=== PATIENT | male | born 1950 | race Caucasian/White ===

== ENCOUNTER 2017-01-21 18:15 | Emergency (ER) | payer MEDICARE, OTHER ==
[~2017-01-21] VITALS: Ht 182.9 cm; Wt 127.3 kg
[2017-01-21] MEDS ORDERED: EFFE150C PO (18:35)
[2017-01-21] MEDS ORDERED: LISI-542 PO (18:42)
[2017-01-21] MEDS ORDERED: METO1TAB7 PO (18:42)
[2017-01-21] MEDS ORDERED: AMIO200T37 PO (18:42)
[2017-01-21] MEDS ORDERED: ESOM1CAP5 PO (18:42)
[2017-01-21] MEDS ORDERED: SING10TA32 PO (18:42)
[2017-01-21] MEDS ORDERED: ATOR1TAB21 PO (18:42)
[2017-01-21] MEDS ORDERED: DEPA500T2 PO (18:42)
[2017-01-21] MEDS ORDERED: ELIQ5TAB PO (18:42)
--- NOTE | 2017-01-21 19:29 | REP ---
HISTORY: Pain after trauma. The patient on Eliquis. COMPARISON: 08/12/2012 TECHNIQUE: 4.5 mm contiguous transaxial sections were obtained from the skull base to the cerebral convexities with thin cuts through the posterior fossa without the administration of intravenous contrast. FINDINGS: The ventricles and sulci are consistent with the patient's age. There are no extra-axial fluid collections. There is no mass effect. The deep cerebral white matter is consistent with the patient's age. The orbital and petrous structures , cerebellopontine angles, and posterior fossa are unremarkable. The sella turcica, cavernous, and paracavernous structures are essentially unremarkable. The visualized portions of the paranasal sinuses and mastoid air cells are clear. Images of the skull base show no gross abnormality. IMPRESSION: Essentially unremarkable CT examination of the brain. There has been no significant change compared to the prior examination. Signed by Krish Thomas DO 01/21/2017 07:54 P
--- NOTE | 2017-01-21 19:36 | REP ---
HISTORY: Pain in the neck after trauma. COMPARISON: 08/12/2012 There is no evidence of significant change from the prior exam. There is no evidence of an acute cervical spine fracture. The facet joints are again seen to be well aligned bilaterally. Degenerative disc space narrowing is again seen at every level and particularly at the C6-7 level where anterior and posterior osteophytic ridging is again seen to be the heaviest. IMPRESSION: Chronic changes as described above. There is no evidence of an acute cervical spine fracture. Signed by Krish Thomas DO 01/21/2017 07:54 P
--- NOTE | 2017-01-21 19:43 | REP ---
HISTORY: Pain after trauma. COMPARISON: None. There is a slight grade 1 superior endplate compression deformity seen involving T11. Syndesmophyte and partial syndesmophyte formation is seen bilaterally at multiple levels. The pedicles are intact bilaterally. There is degenerative disc space narrowing. IMPRESSION: Grade 1 T11 compression fracture, the age of which cannot be determined by this exam. Signed by Krish Thomas DO 01/21/2017 07:54 P
--- NOTE | 2017-01-21 19:43 | REP ---
REASON: Pain after trauma. COMPARISON: None. There is a grade 2 T12 anterior wedge shaped compression abnormality. There are chronic changes seen throughout the lumbar spine with posterior disc space narrowing and anterior lipping, heaviest at the T12-L1 level. Vertebral body height is otherwise within normal limits. Syndesmophyte and partial syndesmophyte formation is seen at various levels bilaterally. There is degenerative facet joint change seen bilaterally at L4-5 and L5-S1. IMPRESSION: Exact age undetermined, grade 2 T12 compression deformity due to the degree of anterior lipping. The finding probably represents chronic change but needs to be correlated clinically. Chronic changes as described above. Signed by Krish Thomas DO 01/21/2017 07:54 P
[2017-01-21] MEDS ORDERED: PERCOCET 5MG/325MG TAB PO ONE (19:45)
[2017-01-21] MEDS ORDERED: LORazepam 2 MG/ML VIAL (J2060) IV STA (20:20)
[2017-01-21] MEDS ORDERED: MORPHINE 2 MG/ML 1ML SYRINGE IV ONE (20:30)
[2017-01-21] MEDS ORDERED: NORCO 5/325MG TABLET (BULK FOR ED) PO ONE (21:45)
[2017-01-21 22:42] VITALS: BP 108/62
== END 2017-01-21 22:49 | disposition home or self-care (01) ==
LOC: M ED 18:15 → EDBD 18:15 → M ED 22:49
DX: S22.080A Wedge compression fracture of T11-T12 vertebra, initial encounter for closed fracture (principal); W01.0XXA Fall on same level from slipping, tripping and stumbling without subsequent striking against object, initial encounter; Y92.510 Bank as the place of occurrence of the external cause; Y93.9 Activity, unspecified; Y99.9 Unspecified external cause status; I48.91 Unspecified atrial fibrillation; Z79.01 Long term (current) use of anticoagulants; Z79.899 Other long term (current) drug therapy
CPT/HCPCS: 70450; 72072; 72110; 72125; 96374; 96375; 99284; J2060

== ENCOUNTER 2017-01-23 07:51 | Emergency (ER) | payer OTHER ==
[~2017-01-23] VITALS: Ht 182.9 cm; Wt 127.3 kg
[~2017-01-23 07:51] MED LIST: AMIO200T37 PO; ATOR1TAB21 PO; DEPA500T2 PO; EFFE150C PO; ELIQ5TAB PO; ESOM1CAP5 PO; LISI-542 PO; METO1TAB7 PO; SING10TA32 PO
[2017-01-23] MEDS ORDERED: ONDANSETRON 4MG/2ML VIAL (J2405) IV ONE (08:45)
[2017-01-23] MEDS ORDERED: MORPHINE 4 MG/ML 1ML SYRINGE IV ONE (08:45)
--- NOTE | 2017-01-23 10:59 | REP ---
CT study of the thoracic and lumbar spine junction without contrast: History: T12 fracture sustained in a recent fall with increased pain. Comparison thoracic and lumbar spine radiographs are from January 21, 2017. Technique: Helical scanning is acquired from mid T9 through L2. Coronal and sagittal multiplanar re-formation images are generated in addition to axial images. CT findings: This CT study confirms the presence of recent compression fracture deformity at T12 with discontinuity of the anterior cortex inferiorly. There is mild, 20% loss of anterior vertebral body heights. No retropulsion is appreciated. No posterior element involvement is seen. The other vertebral body heights in the field of view remain preserved. No paraspinal or epidural hematoma is appreciated. Impression: Mild wedge compression fracture deformity at T12 appears recent. 20% loss vertebral body height. No retropulsion or posterior element involvement seen. No evidence of epidural or paraspinal hematoma. Signed by Yogi Gonzalez MD 01/23/2017 02:17 P
[2017-01-23 11:17] VITALS: O2SAT 92
[2017-01-23] MEDS ORDERED: PERCOCET 5MG/325MG TAB PO ONE (12:30)
[2017-01-23] MEDS ORDERED: CYCL5TAB PO (13:55)
[2017-01-23 13:59] VITALS: BP 124/65
--- NOTE | 2017-01-23 14:08 | REP ---
MRI lumbar spine without contrast: History: Left L2-3 radiculopathy. History of a fall. Low back pain. Recent imaging showed a mild T12 wedge compression fracture. Comparison is made with today's thoracic spine CT and thoracic spine radiographs from January 21, 2017. Technique: Sagittal and axial T1 and T2-weighted scans are acquired in the usual fashion with and without fat saturation. Sequences include spin echo, turbo spin-echo, and STIR imaging sequences. MRI findings: There is T2 hyperintense, T1 hypointense edema pattern in the T12 vertebral body particularly along the superior endplate and in the anterior portion of the vertebral body consistent with a recent osteoporotic wedge compression fracture deformity. There is buckling of the anterior cortex as seen on CT imaging. There is no evidence of retropulsion. There is no evidence of epidural hematoma. No ligament disruption is appreciated on STIR images. The conus medullaris is normal in appearance and position at T12. No other fracture or collapse is seen. There is mild disc space narrowing at the L3-4 disc level. Canal size is congenitally small at L2-3 through L5-S1. There is some epidural fat diffusely at L4-5 and at L5-S1. There is facet hypertrophy at L5-S1 bilaterally and to a lesser extent at L4-5. No neural foraminal narrowing is appreciated. Impression: Recent mild wedge compression fracture deformity at T12 as seen on thoracic CT. No evidence of epidural hematoma or paraspinal hematoma. 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 Mild diffuse disc bulging L3-4, L4-5 and L2-3. No neural foraminal narrowing. No other fracture seen. Signed by Yogi Gonzalez MD 01/23/2017 02:21 P
== END 2017-01-23 14:10 | disposition home or self-care (01) ==
LOC: M ED 07:51 → EDBD 07:51 → M ED 14:10
DX: S22.080A Wedge compression fracture of T11-T12 vertebra, initial encounter for closed fracture (principal); M54.17 Radiculopathy, lumbosacral region; W19.XXXA Unspecified fall, initial encounter; Y92.9 Unspecified place or not applicable; Y93.9 Activity, unspecified; Y99.9 Unspecified external cause status; I48.91 Unspecified atrial fibrillation; I10 Essential (primary) hypertension; F31.9 Bipolar disorder, unspecified; M51.26 Other intervertebral disc displacement, lumbar region; Z79.899 Other long term (current) drug therapy
CPT/HCPCS: 72128; 72148; 93041; 94760; 96374; 96375; 99285; J2405; J3360

== ENCOUNTER 2017-01-30 07:17 | Emergency (ER) | payer OTHER ==
[~2017-01-30] VITALS: Ht 182.9 cm; Wt 127.2 kg
[~2017-01-30 07:17] MED LIST changes: +CYCL5TAB PO
[2017-01-30] MEDS ORDERED: OXYC1TAB23 PO (07:35)
[2017-01-30] MEDS ORDERED: TIZANIDINE PO (07:35)
[2017-01-30] MEDS ORDERED: MORPHINE 30 MG TAB **MSIR PO PRN (08:45)
--- NOTE | 2017-01-30 09:30 | REP ---
PA and lateral chest: There are no comparisons. There is an incomplete inspiratory effort. Lung flores are clear. Cardiac size is upper normal. The rajendra, mediastinum, and bony thorax are unremarkable. Impression: Incomplete inspiratory effort. Otherwise, negative chest. Signed by Yaya Prakash MD 01/30/2017 09:21 A
[2017-01-30 09:57] VITALS: BP 126/80
--- NOTE | 2017-01-31 08:00 | ECGEPIP ---
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
== END 2017-01-30 10:12 | disposition home or self-care (01) ==
LOC: EDBD 07:17 → M ED 07:17
DX: R94.31 Abnormal electrocardiogram [ECG] [EKG] (principal); G89.29 Other chronic pain; M54.9 Dorsalgia, unspecified; R60.9 Edema, unspecified; R00.1 Bradycardia, unspecified; I48.91 Unspecified atrial fibrillation; K21.9 Gastro-esophageal reflux disease without esophagitis; F32.9 Major depressive disorder, single episode, unspecified; E78.5 Hyperlipidemia, unspecified; Z87.891 Personal history of nicotine dependence; Z79.899 Other long term (current) drug therapy

== ENCOUNTER → 2019-07-03 | Outpatient (REF) | payer MEDICARE ==
[~2019-07-03] MED LIST changes: -EFFE150C PO; +EFFE150C2 PO; +OXYC1TAB23 PO; +TIZANIDINE PO
== END ==
LOC: M LAB REF 15:25
PROVIDERS: ATTEND Internal Medicine Endocrinology, Diabetes & Metabolism
DX: E04.1 Nontoxic single thyroid nodule (principal)

== ENCOUNTER → 2020-12-30 | Outpatient (CLI) | payer MEDICARE ==
[~2020-12-30] MED LIST changes: +ECOT81TA5 PO; -LISI-542 PO; +LISI-898 PO
== END ==
LOC: M LABSMTC 10:58
PROVIDERS: ATTEND Anesthesiology
DX: Z01.812 Encounter for preprocedural laboratory examination (principal); Z20.822 Contact with and (suspected) exposure to COVID-19

== ENCOUNTER 2021-01-03 11:35 | Day surgery (SDC) | payer MEDICARE ==
[~2021-01-03] VITALS: Ht 182.9 cm; Wt 93.0 kg
[~2021-01-03 11:35] MED LIST changes: +NS 1,000 ML IV ONE
[2021-01-03] MEDS ORDERED: propofoL 200 MG/20 ML VIAL As Ordered ONE (12:29)
[2021-01-03] MEDS ORDERED: fentaNYL 100 MCG/2 ML INJECTION (J3010) As Ordered ONE (12:29)
[2021-01-03] MEDS ORDERED: LIDOCAINE 2% 100MG/5ML SDV (FOR ANES.) As Ordered ONE (12:29)
--- NOTE | 2021-01-03 12:51 | ROOR ---
Patient Name: Antony Rose Procedure Date: 01/03/2021 12:31 PM Date of : 1950 Age: 70 Room: [facility] Gender: Male Note Status: Finalized Procedure: Upper GI endoscopy Indications: Nausea with vomiting Providers: Jamin Pires MD Referring MD: Girish Rothman DO Requesting Provider: Medicines: Monitored Anesthesia Care Complications: No immediate complications. Procedure: Pre-Anesthesia Assessment: - The heart rate, respiratory rate, oxygen saturations, blood pressure, adequacy of pulmonary ventilation, and response to care were monitored throughout the procedure. The Endoscope was introduced through the mouth, and advanced to the second part of duodenum. The upper GI endoscopy was accomplished without difficulty. The patient tolerated the procedure well. Findings: The Z-line was variable and was found 40 cm from the incisors. This was biopsied with a cold forceps for histology. Scattered mild inflammation characterized by erythema and granularity was found in the gastric antrum. Biopsies were taken with a cold forceps for histology. Small Hiatal Hernia. A small diverticulum was found in the second portion of the duodenum. The exam was otherwise without abnormality. Impression: - Z-line variable, 40 cm from the incisors. Biopsied. - Mild antral gastritis. Biopsied. - Small Hiatal Hernia. - Duodenal diverticulum. - The examination was otherwise normal. Recommendation: - Observe patient's clinical course. - Continue present medications. Procedure Code(s): --- Professional --- 27807, Esophagogastroduodenoscopy, flexible, transoral; with biopsy, single or multiple Diagnosis Code(s): --- Professional --- K57.10, Diverticulosis of small intestine without perforation or abscess without bleeding R11.2, Nausea with vomiting, unspecified K29.70, Gastritis, unspecified, without bleeding K22.8, Other specified diseases of esophagus CPT copyright 2019 [employer] [place] [employer]. All rights reserved. The codes documented in this report are preliminary and upon dive master review may be revised to meet current compliance requirements. Jamin Pires MD Jamin Pires MD 01/03/2021 12:50:57 PM Electronically signed by Jamin Pires MD Number of Addenda: 0 Note Initiated On: 01/03/2021 12:31 PM Estimated Blood Loss: Estimated blood loss: none.
--- NOTE | 2021-01-03 13:10 | ROOR ---
Patient Name: Antony Rose Procedure Date: 01/03/2021 12:32 PM Date of : 1950 Age: 70 Room: [facility] Gender: Male Note Status: Finalized Procedure: Colonoscopy Indications: Screening for colorectal malignant neoplasm Providers: Jamin Pires MD Referring MD: Girish Rothman DO Requesting Provider: Medicines: Monitored Anesthesia Care Complications: No immediate complications. Procedure: Pre-Anesthesia Assessment: - The heart rate, respiratory rate, oxygen saturations, blood pressure, adequacy of pulmonary ventilation, and response to care were monitored throughout the procedure. The Colonoscope was introduced through the anus and advanced to the terminal ileum, with identification of the appendiceal orifice and IC valve. The colonoscopy was performed without difficulty. The patient tolerated the procedure well. The quality of the bowel preparation was good. Findings: The perianal and digital rectal examinations were normal. Five sessile polyps were found in the sigmoid colon and hepatic flexure. The polyps were 4 to 6 mm in size. These polyps were removed with a cold snare. Resection and retrieval were complete. A few small-mouthed diverticula were found in the sigmoid colon. Internal hemorrhoids were found during retroflexion. The hemorrhoids were medium-sized. The exam was otherwise without abnormality on direct and retroflexion views. Impression: - Five 4 to 6 mm polyps in the sigmoid colon and at the hepatic flexure, removed with a cold snare. Resected and retrieved. - Diverticulosis in the sigmoid colon. - Internal hemorrhoids. - The examination was otherwise normal on direct and retroflexion views. Recommendation: - Repeat colonoscopy in 3 years for surveillance. Procedure Code(s): --- Professional --- 50423, Colonoscopy, flexible; with removal of tumor(s), polyp(s), or other lesion(s) by snare technique Diagnosis Code(s): --- Professional --- Z12.11, Encounter for screening for malignant neoplasm of colon K63.5, Polyp of colon K64.8, Other hemorrhoids K57.30, Diverticulosis of large intestine without perforation or abscess without bleeding CPT copyright 2019 [employer]. All rights reserved. The codes documented in this report are preliminary and upon jet blade polisher review may be revised to meet current compliance requirements. Jamin Pires MD Jamin Pires MD 01/03/2021 1:10:35 PM Electronically signed by Jamin Pires MD Number of Addenda: 0 Note Initiated On: 01/03/2021 12:32 PM Estimated Blood Loss: Estimated blood loss: none.
[2021-01-03 13:35] VITALS: BP 138/96
== END 2021-01-03 13:39 | disposition home or self-care (01) ==
LOC: M OPP 11:35
PROVIDERS: ATTEND Internal Medicine Gastroenterology
DX: Z12.11 Encounter for screening for malignant neoplasm of colon (principal); D12.3 Benign neoplasm of transverse colon; D12.5 Benign neoplasm of sigmoid colon; K57.30 Diverticulosis of large intestine without perforation or abscess without bleeding; K64.8 Other hemorrhoids; K22.8 Other specified diseases of esophagus; K44.9 Diaphragmatic hernia without obstruction or gangrene; K57.10 Diverticulosis of small intestine without perforation or abscess without bleeding; K29.70 Gastritis, unspecified, without bleeding; R11.2 Nausea with vomiting, unspecified; I42.9 Cardiomyopathy, unspecified; Z79.82 Long term (current) use of aspirin; Z79.899 Other long term (current) drug therapy
CPT/HCPCS: 43239; 45385; 88305; J3010

== ENCOUNTER 2021-01-27 16:11 | Observation (INO) | payer MEDICARE ==
[~2021-01-27] VITALS: Ht 182.9 cm; Wt 91.4 kg
[~2021-01-27 16:11] MED LIST changes: -NS 1,000 ML IV ONE
--- OUTSIDE RECORDS SUMMARY | 2021-01-27 16:15 | CCD | Continuity of Care Document ---
Author Author Antony PIRES MD Organization Unknown Address [address] [place] [address] Phone [phone] Care Team Providers Care Gericare Aide Name Role Phone Girish Rothman D.O. AUTM [phone] Blayen Silva M.D.-[place] AUTM Problems Description No Active Problems Social History Type Date Description Comments Sex Unknown ETOH Use Heavy Drinker Until 1995 ETOH Use Consumes 3 beers per day Tobacco Use Start: Unknown No Allergies, Adverse Reactions, Alerts Description No Known Drug Allergies Medications Active Medications SIG Qnty Indications Ordering Provide r Date Miralax 17GM/Scoop Powder use as instructed by doctor for bowel prep 510gm Z12.11 Jamin Pires MD 10/01/2020 Milk Of Magnesia 1200mg/15ML Suspe nsion take 45 milliliters by mouth as directed on colonoscopy prep sheet. Z12.11 Jamin Pires MD 10/01/2020 Effexor XR 150mg Caps ER 24HR Daily Unknown Ventolin HFA 108(90Base) mcg/ac Ae rosol 2 puffs qid prn with spacer 1units Unknown Aspir-[address] Mary lau Unknown Montelukast Sodium 10mg Tablets 1 by mouth every day Unknown Atorvastatin Calcium 10mg Tablets 1 by mouth every day Unknown Amiodarone HCL 200mg Tablets 1 by mouth every day Unknown Immunizations Description No Information Available Vital Signs Date Vital Result Comment 10/01/2020 1:27pm BP Systolic 152 mmHg BP Diastolic 86 mmHg Height 72 inches 6'0" Weight 212.00 lb BMI (Body Mass Index) 28.7 kg/m2 [place] Body Weight 178 lb Weight 96.163 kg BSA (Body Surface Area) 2.18 m2 06/19/2009 1:02pm BP Systolic 152 mmHg BP Diastolic 89 mmHg Heart Rate 84 /min Results Test Acquired Date Facility Test Result H/L Range Note Laboratory test finding 01/03/2021 [facility] Main Lab [address] [place] [address] [phone] Pathology Request For Service (SEE NOTE) 1 1 FINAL DIAGNOSIS A - Stomach, biopsy for gastritis: Focal mucosal erosion with associated acute inflammation and reactive/inflammatory glandular atypia is noted. Features suggestive of reactive gastropathy are also noted. No features of H. Pylori are noted. B - EG junction, biopsy: Squamocolumnar junction mucosa with moderate chronic inflammation. No intestinal metaplasia is identified. C - Hepatic flexure polyps, polypectomy: Adenomatous polyp/tubular adenoma fragments. D - Sigmoid colon, polyps, polypectomy: Fragments of adenomatous polyp/ tubulovillous and tubular adenoma. 01/06/2021 - 1308 CLINICAL DIAGNOSIS Nausea, vomiting, screening gastritis 01/03/2021 - 1453 GROSS DIAGNOSIS A - Received in formalin labeled "biopsy for gastritis" is a 0.8 x 0.2 x 0.2 cm aggregate of multiple mucosal fra gments. All in one. B - Received in formalin labeled "EG junction biopsy" is a 0.8 x 0.2 x 0.2 cm aggregate of mucosal fragments. All in one. C - Received in formalin labeled "hepatic flexure polyps" is a 0.6 x 0.4 x 0.2 cm aggregate of mucosal fragments. All in one. D - Received in formalin labeled "sigmoid polyps" is a 0.7 x 0.3 x 0.2 cm aggregate of polyp fragments. All in one. - 01/03/2021 - 1453 Signed Franky Cruz MD 01/06/2021 1308 Procedures Date Code Description Status 10/01/2020 34309 Office/Outpatient [facility] 30 -44 Minutes Completed Medical Devices Description No Information Available Encounters Type Date Location Provider Dx Diagnosis Office Visit 10/01/2020 1:15p [facility] Leni Maguire, LATRICIA Z12.11 Encounter for screening for malignant neoplasm of colon R11.2 Nausea with vomiting, unspec ified Assessments Date Code Description Provider 10/01/2020 Z12.11 Encounter for screening for lio gnant neoplasm of colon Kristan A LATRICIA Maguire 10/01/2020 R11.2 Nausea with vomiting, unspecifie d Kristan Rose LATRICIA Maguire Plan of Treatment 10/01/2020 - Kristan A LATRICIA Maguire* Z12.11 Encounter for screening for malignant neoplasm of colon * R11.2 Nausea with vomiting, unspecified * * New Medication:* Miralax 17 GM/Scoop * Milk Of Magnesia 1200 mg/15ML * New Orders:* Colonoscopy, Ordered: 10/01/20 * Comments:* Will arrange for upper endoscopy and colonoscopy. Reviewed risks and benefits of the procedures, as well as other options, with the patient. Prep for this procedure was discussed with patient, including risks and side effects associated with the prep. Will obtain cardiac clearance prior to the procedures. Patient verbalized understanding of all of the above and is in agreement to proceed. Patient will seek medical attention for any acute changes. Will monitor. * Follow up:* As scheduled, sooner if needed. Functional Status Description No Information Available Mental Status Description No Information Available Referrals Refer to Reason for Referral Status Appt Date Jamin Pires M.D. COLO SCREENING Scheduled 10/01/2020 [facility], Gastroenterology [address], [address] [place] [address] [phone]
--- OUTSIDE RECORDS SUMMARY | 2021-01-27 16:15 | CCD | Continuity of Care Document ---
Author Author Antony PIRES MD Organization Unknown Address [address] [place] [address] Phone [phone] Care Team Providers Care Test Bore Helper Name Role Phone Girish Rothman D.O. AUTM [phone] Blayne Silva M.D.-[place] AUTM Problems Description No Active Problems Social History Type Date Description Comments Sex Unknown ETOH Use Heavy Drinker Until 1995 ETOH Use Consumes 3 beers per day Tobacco Use Start: Unknown No Allergies and adverse reactions Description No Known Drug Allergies Medications Active [...] lb BMI (Body Mass Index) 28.7 kg/m2 [place] Body Weight 178 lb Weight 96.163 kg BSA (Body Surface Area) 2.18 m2 06/19/2009 1:02pm BP Systolic 152 mmHg BP Diastolic 89 mmHg Heart Rate 84 /min Results Test Acquired Date Facility Test Result H/L Range Note Laboratory test finding 01/03/2021 [facility] Main Lab [address] [place] [address] [phone] Pathology Request For Service (SEE NOTE) 1 [...] 01/06/2021 1308 Procedures Date Code Description Status 01/03/2021 82902 Colonoscopy W/ Poly Completed 01/03/2021 22745 Endoscopy Upper GI Biopsy Comple daryl 10/01/2020 05702 Office/Outpatient New [facility] 30 -44 Minutes Completed Medical Devices Description No Information Available Encounters Type Date Location Provider Dx Diagnosis Office Visit 10/01/2020 1:15p [facility] Gastroenter[facility] ctice Kristan Rose LATRICIA Maguire Z12.11 Encounter for screening for malignant neoplasm of colon R11.2 Nausea with vomiting, unspec ified Assessments Date Code Description Provider 01/03/2021 Z12.11 Encounter for screening for lio gnant neoplasm of colon Jamin Pires MD 01/03/2021 D12.3 Benign neoplasm of transverse co radha Jamin Pires MD 01/03/2021 D12.5 Benign neoplasm of sigmoid colon Jamin Pires MD 01/03/2021 K64.8 Other hemorrhoids Jamin Pires MD 01/03/2021 K57.30 Diverticulosis of la rge intestine without perforation or abscess without bleeding Jamin Pires MD 01/03/2021 K29.70 Gastritis, unspecified, without bleeding Jamin Pires MD 01/03/2021 K22.8 Other specified diseases of esop hagus Jamin Pires MD 01/03/2021 K57.10 Diverticulosis of sm all intestine without perforation or abscess without bleeding Jamin Pires MD 01/03/2021 K44.9 Diaphragmatic hernia without obs truction or gangrene Jamin Pires MD 10/01/2020 Z12.11 Encounter for screening for lio gnant neoplasm of colon Kristan A LATRICIA Maguire 10/01/2020 R11.2 Nausea with vomiting, unspecifie d LATRICIA Pedersen Plan of Treatment 10/01/2020 - LATRICIA Pedersen* Z12.11 Encounter for screening for malignant neoplasm [...] Description No Information Available Referrals Refer to Dr Reason for Referral Status Appt Date Jamin Pires M.D. COLO SCREENING Scheduled 10/01/2020 [facility], Gastroenterology [address] [place] [address], [place] [phone]
--- OUTSIDE RECORDS SUMMARY | 2021-01-27 16:15 | CCD ---
Clinical Summary - Formerly [facility] Created on: 01/07/2021 Antony Rose External Reference #: [id number] : 1950 Sex: Male Author Author [facility] Organization [facility] Address [address] [place] [address] Phone Care Team Providers Care Advertising Solicitor Name Role Phone Girish Rothman DO Unavailable [phone] Girish Rothman DO PP [phone] Carolyn Joseph MD Unavailable [phone] Reason for Referral No Reason for Referral Recorded Reason for Visit and Chief Complaint Chart Update Problems Includes: Problems addressed during this encounter and other active Problems All Visits Onset Date - Time Resolved Date - Time Provider Co ndition Status Abnormal Liver Function Test 08/06/2020 - 12:00AM Carmen Rothman DO Active Note: Unchanged Nicotine Dependence in Remission 05/26/2018 - 12:00AM Girish Rothman DO Active Prostate Gland Neoplasm Malignant Adenocarcinoma 01/31/2018 - 12 :00AM [place] Nurse Active Other intervertebral disc degeneration, lumbar region 02/15/2017 - 12:00AM Linnea MEDEL Active Note: 01/26/17- Christopher DURANrescribed [place] TLSO 464 . f/u 3-4 weeks with x ray Fracture of T11-t12 Vertebral Body Wedge Compression 02/05/2017 - 12:00AM Girish Rothman DO Active Note: Per 01/23/17 L-Spine M RI Hypertension (Systemic) 09/11/2016 - 12:00AM Girish Rothman DO Active Impaired Fasting Glucose 09/11/2016 - 12:00AM Girish Rothman DO Active Microalbuminuria 09/11/2016 - 12:00AM Girish J Cargue llo DO Active Paroxysmal Atrial Fibrillation 01/07/2016 - 12:00AM Darrell Rothman DO Active Note: Followed by cardiology , see [facility] consult dated 01/03/16 Cardiomyopathy 09/30/2015 - 12:00AM Girish mtz DO Active Note: Per [facility] consult dated 09/27/15, ejection fraction 40-45% on transesophageal echocardiogram Primary Insomnia 09/11/2013 - 12:00AM Girish delaney DO Active Urine Drug Screen 01/17/2013 - 12:00AM Girish duenas DO Active Note: UDS 09/09/2012- (consis tent)MMA- 05/25/2012 Bulging Intervertebral Disc Cervical 08/15/2012 - 12:00AM Girish Rothman DO Active Note: C4-5 , C5-6, C6-[address] scan dated 08/12/12 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 "He does have some mild dribbling after voiding. Overall his urinary pattern is not bothersome and we will continue to follow that." Asthma Intermittent 09/01/2010 - 12:00AM Girish capps DO Active Note: see asthma action plan Hemorrhoids Internal 09/03/2009 - 12:00AM Girish vance DO Active Note: SMALL ON 06/28/2009 COL ONOSCOPY- DR SHARMA. Allergic Rhinitis - Pollen 03/05/2009 - 12:00AM Ronald Rothman DO Active Note: COUGH RESPONDED TO ANT I HIS AND SINGULAIR IN FALL 2008. Vitamin D Deficiency 03/05/2009 - 12:00AM Girish vance DO Active Benign Skin Neoplasm Subcutaneous Lipoma 08/02/2007 - 12:00AM Active Note: R AXILLA WITHOUT DUVALL E. CT AND XRAYS WNL. Esophageal Reflux 08/02/2007 - 12:00AM Girish duenas DO Active Note: Stable - EGD 06/28/2009 INFLAMMATION - NO BARRETTS Bipolar I Disorder 08/02/2007 - 12:00AM Girish strickland DO Active Note: PREVIOUSLY FOLLOWED BY DR PAREDES UNTIL 08 - DOESN'T TAKE HIS INSURANCE NOW. LAST MED CHANGE WAS IN 2002. Hyperlipidemia 08/02/2007 - 12:00AM Girish mtz DO Active Note: Well-Controlled - TRIG S HAVE BEEN 490 IN PAST. Obesity 08/02/2007 - 12:00AM Active Note: Unchanged Reported Family History of Ischemic Heart Disease 08/02/2007 - 12:0 0AM Active Note: MOTHER AT 62 Plan of Treatment Future Appointments Date Time Location Provider [facility] 02/05/2021 2:00PM [facility] Linnea new [facility] Assessments Includes: Assessments from this encounterNo Assessments Recorded Instructions Includes: Instructions from this encounterNo Instructions Recorded Medical Equipment - Implanted Devices Includes: Current DevicesNo Medical Equipment Recorded Medications Includes: Medications discussed during this encounter and other current Medicati ons Current Medications (continue as prescribed) Adult Aspirin Regimen 81 MG Oral Tablet Delayed Release 08/11 Provider: Diagnosis: Amiodarone HCl 200 MG Oral Tablet 08/06/2020 Provid er: Carolyn Joseph MD Diagnosis: Atorvastatin Calcium 10 MG Oral Tablet 06/13/2020 - 06/08/19 Provider: Girish Rothman DO Diagnosis: Hyperlipidemia, unsp ecified as directed take 1 tablet once daily. Effexor XR 150 MG Oral Capsule Extended Release 24 Hour 07/2020 - 06/08/2021 Provider: Girish Rothman DO Diagnosis: Bipolar disorder, un specified as directed take 1 capsule once daily. Montelukast Sodium 10 MG Oral Tablet 06/13/2020 - 06/08/2021 Provider: Girish Rothman DO Diagnosis: Other seasonal aller gic rhinitis as directed take 1 tablet once a day. Medications Administered Includes: Administered Medications from this encounterNo Administered Medications Recorded Vital Signs Includes: Vital Signs from this encounterNo Vital Signs Recorded For Specified Dates Results Includes: Results discussed during this encounterNo Results Recorded For Specified Dates History of Present Illness Includes: History of Present Illness from this encounterNo History of Present Illness Recorded Social History No Social History Recorded - Smoking Status Unknown Procedures and Surgical History Includes: Procedures from this encounterNo Procedures For Specified Dates. No Surgical History Recorded Medical History Includes: Medical History addressed during this encounterNo Medical History Recorded Family History Includes: Family History addressed during this encounterNo Family History Recorded Review of Systems Includes: Review of Systems from this encounterNo Review of Systems Recorded Mental Status Includes: Mental Status from this encounterNo Mental Status Recorded Functional Status Includes: Functional Status from this encounterNo Functional Status Recorded Physical Exam Includes: Physical Exam from this encounterNo Physical Exam Recorded Immunizations Includes: Immunizations addressed during this encounterNo Immunizations Recorded Allergies Includes: Active AllergiesNo Known Allergies Encounters Encounter Provider Location Date Check-In Time Check-Out Time D iagnosis Chart Update Janna Villeda RN 01/06/2021 4:42PM 11:59PM Insurance Includes: Active Insurance Policies Plan Name Member ID Group # Subscriber Relationship Effective Da kp 1 - [employer] [id number] Antony Rose Self 1 - Unknown Advance Directives Includes: Current Advance Directives Directive Pat Aware Third Green Party Effective Date Reviewed Status RHIO Yes 03/11/2012 Current and Ve rified Note: 03/10/12 packet given Pt Bill of Rights, Priv Prac, Ad Dir Yes 04/18/2018 Current and Verified Note: Pt declined AD packet Ebola Screening Performed Yes 12/23/2018 Current and Verified Note: Within the last month, have you traveled outside of the [place]? - NO Health Concerns Includes: Health Concerns addressed during this encounterNo Active Health Concerns Recorded Goals Includes: Goals addressed during this encounterNo Active Goals Recorded Interventions Includes: Interventions addressed during this encounterNo Interventions Recorded Evaluations & Outcomes Includes: Evaluations & Outcomes addressed during this encounterNo Outcomes Recorded
--- NOTE | 2021-01-27 16:55 | REP ---
INDICATION: pain COMPARISON: None. TECHNIQUE: Five views left knee. FINDINGS: There is no evidence of acute fracture, dislocation, or intrinsic bone disease.There is mild medial joint space narrowing and subchondral sclerosis. There is mild patellofemoral compartment narrowing and subchondral sclerosis. There is a large spur of the superior pole of the patella. There does not appear to be a significant joint effusion. There are scattered vascular calcifications. The prepatellar and infrapatellar soft tissues are swollen suggesting bursitis. IMPRESSION: No fracture or dislocation. Mild degenerative changes. Findings suggesting prepatellar bursitis. <Electronically signed by Yaya Bourne > 01/27/21 [id number]
[2021-01-27 21:27] LABS: BASO % 0.3 % (0.0-1.0); HEMATOCRIT 49.2 % (42.0-52.0); HEMOGLOBIN 16.3 g/dl (13.5-17.5); LYMPH # 0.6 10^3/uL (1.5-5.0); LYMPH % 4.6 % (24.0-44.0); MEAN CORPUSCULAR HGB CONC 33.1 g/dl (32.0-36.5); MEAN CORPUSCULAR VOLUME 90.6 fl (80.0-96.0); MONO # 1.1 10^3/uL (0.0-0.8); MONO % 8.3 % (2.0-8.0); NEUTROPHILS # 11.8 10^3/uL (1.5-8.5); NEUTROPHILS % 86.4 % (36.0-66.0); PLATELET COUNT, AUTOMATED 223 10^3/uL (150-450); RED BLOOD COUNT 5.43 10^6/uL (4.30-6.10); WHITE BLOOD COUNT 13.7 10^3/uL (4.0-10.0)
[2021-01-27 21:45] LABS: ERYTHROCYTE SEDIMENTATION RATE 1 mm/hr (0-20)
[2021-01-27 21:54] LABS: ALBUMIN 3.7 GM/DL (3.2-5.2); ALT/SGPT 34 U/L (12-78); BILIRUBIN,DIRECT 0.2 MG/DL (0.0-0.2); BILIRUBIN,TOTAL 0.8 MG/DL (0.2-1.0); C REACTIVE PROTEIN QUANTITATIV 0.76 MG/DL (0.00-0.30); LIPASE 88 U/L (73-393)
[2021-01-27] MEDS ORDERED: VANCOMYCIN HCL 2,000 MG in D5W 500 ML IV ONE (22:25)
[2021-01-27] MEDS ORDERED: VANCOMYCIN HCL 1,000 MG, VIAL MATE ADAPTER 1 EACH in NS 250 ML IV ONE ×2 (22:30→23:30)
[2021-01-27] MEDS ORDERED: PROHANCE 279.3MG/ML 5ML VIAL As Ordered ONE (22:33)
[2021-01-27] MEDS ORDERED: PROHANCE 279.3MG/ML 15ML VIAL As Ordered ONE (22:33)
[2021-01-27] MEDS ORDERED: ACETAMINOPHEN 325 MG TAB PO ONE (23:25)
[2021-01-28] MEDS ORDERED: ATOR1TAB19 PO (00:02)
[2021-01-28] MEDS ORDERED: PROAAER10 INH (00:03)
[2021-01-28] MEDS ORDERED: HOME MED LIST COMPLETE! XX SCH (00:05)
[2021-01-28] MEDS ORDERED: MOM 30ML SUSPENSION UDC PO PRN (00:15)
[2021-01-28] MEDS ORDERED: MAALOX 30 ML SUSP *UDC PO PRN (00:15)
[2021-01-28] MEDS ORDERED: KETOROLAC 30 MG/ML 1ML VIAL IV PRN (00:15)
[2021-01-28] MEDS ORDERED: MORPHINE 4 MG/ML 1ML VIAL/SYRINGE (J2270) IV PRN (00:20)
[2021-01-28] MEDS ORDERED: ALBUTEROL 90 MCG/ACT 8GM HFA INHALER INH PRN (00:20)
[2021-01-28 00:21] LABS: CK-MB VALUE MASS 6.2 NG/ML (<3.6); CPK CREATINE PHOSPHOKINASE 231 U/L (39-308); MB/CK RELATIVE INDEX 2.68 (< OR =4); TROPONIN I < 0.02 NG/ML (< 0.10)
--- NOTE | 2021-01-28 00:35 | REPVR ---
PROCEDURE INFORMATION: Exam: MR Lumbar Spine Without and With Contrast Exam date and time: 01/27/2021 10:29 PM Age: 70 years old Clinical indication: Other: Fasciaulations outer thigh TECHNIQUE: Imaging protocol: Multiplanar magnetic resonance images of the lumbar spine without and with intravenous contrast. Contrast material: PROHANCE; Contrast volume: 18 ml; Contrast route: INTRAVENOUS (IV); COMPARISON: MRI-Spine, L.S. without con 01/23/2017 12:53 PM FINDINGS: Vertebrae: There is a moderate decrease in vertebral height/compression fracture of the T12 vertebral body. There is a mild progressive decrease in vertebral height, without significant acute marrow edema. The lumbar vertebral bodies are normal in height, without abnormal subluxation. Mild convexity of the lower thoracic and upper lumbar spine to the right. Mild enhancement is identified in the interspinous region and adjacent bone marrow at L4-L5, without abnormal signal intensity on STIR. This is likely artifactual or reactive. Mild enhancement within the T11-12 disc, which is likely reactive. Spinal cord: The distal end of the conus medullaris ends at T12, normal in position. Multilevel findings: Degenerative disc disease is noted at multiple lumbar and lower thoracic levels, with disc bulge/osteophyte complexes. L1-L2: Bilateral facet arthropathy. Minimal disc bulging. No significant spinal canal stenosis. Mild left and moderate right neural foraminal narrowing. L2-L3: Bilateral facet arthropathy with hypertrophy of the ligamentum flavum. No significant spinal canal stenosis. Narrowing of the lateral recesses. Minimal disc bulging. Mild bilateral neural foraminal narrowing. L3-L4: Bilateral facet arthropathy with hypertrophy of the ligamentum flavum. Minimal disc bulging, without significant spinal canal stenosis. Narrowing of both lateral recesses. Mild left and moderate right neural foraminal narrowing. L4-L5: Bilateral facet arthropathy with hypertrophy of the ligamentum flavum. Minimal disc bulging. No significant spinal canal stenosis. Narrowing of both lateral recesses. Mild to moderate right and mild left neural foraminal narrowing. A subcentimeter ovoid focus of T2 hyperintensity is seen within the anterior aspect of the disc. L5-S1: Bilateral facet arthropathy. Minimal disc bulging. The thecal sac tapers at this level. No significant spinal canal stenosis. Mild bilateral neural foraminal narrowing, left side greater than right. Soft tissues: Mild soft tissue swelling posteriorly. IMPRESSION: 1. There is a moderate decrease in vertebral height/compression fracture of the T12 vertebral body. There is a mild progressive decrease in vertebral height, without significant acute marrow edema. 2. Degenerative changes are noted at multiple lumbar and lower thoracic levels, as described above. 3. No significant spinal canal stenosis at any lumbar level. 4. Neural foraminal narrowing diffusely within the lumbar spine. 5. Additional findings described above. Electronically signed by: All Quinonez On 01/28/2021 00:35:05 AM
[2021-01-28 01:35] LABS: RSV AMPLIFICATION NEGATIVE (NEGATIVE)
[2021-01-28 02:00] VITALS: BP 128/83
--- NOTE | 2021-01-28 02:25 | HPEPDOC ---
[facility] Medical History & Physical Date of Admission Jan 28, 2021 Date of Service: Jan 28, 2021 Attending Physician: ALEXANDRE GONZALEZ MD History and Physical CHIEF COMPLAINT: [70 y/o male c/o pain, erythema, edema of left knee x1 day] HISTORY OF PRESENT ILLNESS: [This is a 70 y/o male with a pmh of a-fib not on oral anticoagulant, htn, and gerd who presents to our ED on 01/27 with a cc of pain, erythema and edema of his left knee that began today. 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 Patient tells me that after this, he noticed a bump on his knee that he thought had pus in it, so he drained it at home himself with a needle. Patient tells me that he got purulent material out of the bump and thought that would be the end of it. However, today he developed rapid swelling and erythema of the joint. Patient tells me that his pain is primarily when he walks, and does not really bother him when he rests. Patient tells me that pain is in the prepatellar region of the knee and does not radiate. Patient, at the time of my exam, denies any fevers, chills, chest pain, cough, sob, abd pain, n/v/d/c, poor oral intake, recent falls, pedal edema.] PAST MEDICAL HISTORY: 1. [See HPI PAST SURGICAL HISTORY: 1. [Colonoscopy]. SOCIAL HISTORY: Tobacco use:[Denies] ETOH: [Denies] Illicit drug use: [Denies] FAMILY HISTORY: Reviewed - none pertinent ALLERGIES: Please see below. REVIEW OF SYSTEMS: CONSTITUTIONAL: [Denies fevers, chills]. HEENT: [Denies uri type sx]. CARDIOVASCULAR: [Denies chest pain, palpitations]. RESPIRATORY: [Denies sob, cough]. GASTROINTESTINAL: [Denies abd pain, n/v/d/c]. GENITOURINARY: [Denies dysuria]. SKIN: [See HPI]. MUSCULOSKELETAL: [See HPI]. NEUROLOGICAL: [Denies syncope, paresthesias]. ENDOCRINE: [Denies hx of DM]. HEMATOLOGIC/LYMPHATIC: [Denies hx of vte]. HOME MEDICATIONS: Please see below. PHYSICAL EXAMINATION: VITAL SIGNS: Please see below. GENERAL APPEARANCE: [This is a 70 y/o male who is alert and oriented to all questioning. He does not appear to be in any acute distress]. HEENT: [No mass or lesion. EOMI. No scleral icterus. Nares patent. Oral mucosa moist]. CARDIOVASCULAR: [Regular rate, rhythm. No murmurs, rubs, gallops]. LUNGS: [Good air flow b/l. No wheezing, rales, rhonchi]. ABDOMEN: [Soft, nontender]. MUSCULOSKELETAL: [There is a significant amount of prepatellar edema that is fluctuant to the touch. Area of edema tender and erythematous. There is a sc abbed over wound on the patella approx 1cm across without any appreciable drainage. Palpation of lateral and posterior joint shows no tenderness. Knee passively flexed to approx 60 degrees before patient complained of any significant pain.]. EXTREMITIES: [No pedal edema appreciated. Negative homans sign. Pulses intact. ]. NEUROLOGICAL: [Sensation intact. Patient moves all fours freely. Transient t witching movements of lateral left thigh musculature. Speech clear. A+Ox3. No focal deficit]. PSYCHIATRIC: [Mood and affect appropriate]. LABORATORY DATA: See below. IMAGING: [Knee XR: FINDINGS: There is no evidence of acute fracture, dislocation, or intrinsic bone disease.There is mild medial joint space narrowing and subchondral sclerosis. There is mild patellofemoral compartment narrowing and subchondral sclerosis. There is a large spur of the superior pole of the patella. There does not appear to be a significant joint effusion. There are scattered vascular calcifications. The prepatellar and infrapatellar soft tissues are swollen suggesting bursitis. IMPRESSION: No fracture or dislocation. Mild degenerative changes. Findings suggesting prepatellar bursitis. Lumbar Spine MRI: FINDINGS: Vertebrae: There is a moderate decrease in vertebral height/compression fracture of the T12 vertebral body. There is a mild progressive decrease in vertebral height, without significant acute marrow edema. The lumbar vertebral bodies are normal in height, without abnormal subluxation. Mild convexity of the lower thoracic and upper lumbar spine to the right. Mild enhancement is identified in the interspinous region and adjacent bone marrow at L4-L5, without abnormal signal intensity on STIR. This is likely artifactual or reactive. Mild enhancement within the T11-12 disc, which is likely reactive. Spinal cord: The distal end of the conus medullaris ends at T12, normal in position. Multilevel findings: Degenerative disc disease is noted at multiple lumbar and lower thoracic levels, with disc bulge/osteophyte complexes. L1-L2: Bilateral facet arthropathy. Minimal disc bulging. No significant spinal canal stenosis. Mild left and moderate right neural foraminal narrowing. L2-L3: Bilateral facet arthropathy with hypertrophy of the ligamentum flavum. No significant spinal canal stenosis. Narrowing of the lateral recesses. Minimal disc bulging. Mild bilateral neural foraminal narrowing. L3-L4: Bilateral facet arthropathy with hypertrophy of the ligamentum flavum. Minimal disc bulging, without significant spinal canal stenosis. Narrowing of both lateral recesses. Mild left and moderate right neural foraminal narrowing. L4-L5: Bilateral facet arthropathy with hypertrophy of the ligamentum flavum. Minimal disc bulging. No significant spinal canal stenosis. Narrowing of both lateral recesses. Mild to moderate right and mild left neural foraminal narrowing. A subcentimeter ovoid focus of T2 hyperintensity is seen within the anterior aspect of the disc. L5-S1: Bilateral facet arthropathy. Minimal disc bulging. The thecal sac tapers at this level. No significant spinal canal stenosis. Mild bilateral neural foraminal narrowing, left side greater than right. Soft tissues: Mild soft tissue swelling posteriorly. IMPRESSION: 1. There is a moderate decrease in vertebral height/compression fracture of the T12 vertebral body. There is a mild progressive decrease in vertebral height, without significant acute marrow edema. 2. Degenerative changes are noted at multiple lumbar and lower thoracic levels, as described above. 3. No significant spinal canal stenosis at any lumbar level. 4. Neural foraminal narrowing diffusely within the lumbar spine. 5. Additional findings described above. ] MICROBIOLOGY: Please see below. ASSESSMENT: [This is a 70 y/o male with a pmh of a-fib not on oral anticoagulant, htn, and gerd who presents to our ED on 01/27 with a cc of pain, erythema and edema of his left knee that began today.]. . PLAN: 1. [Left knee erythema, edema - Most likely prepatellar bursitis with overlying cellulitis - Concern for joint space infection d/t patient performing at home I&D - ED provider consulted orthopedic surgeon, Dr. Koroma, who agreed to evaluate the knee in the AM. Appreciate assistance and recommendations greatly - Pain control with toradol/morphine - Will begin vanco. MRSA pcr ordered. Recommend de-escalation if negative. - Pending no joint space infection, day team can consider starting steroid taper for pre patellar bursitis - admit to med surg for tx 2. A-fib - pt in rate controlled a-flutter in the ED - pt not anticoagulated at home, pt tells me his land appraiser told him he did not need it - will put pt on therapeutic lovenox dosing while in house - continue asa, amiodarone 3. ?LLE Fasciculations - patient with some asymptomatic twitching of lateral musculature of left leg on exam - ED provider ordered mri lumbar spine which showed compression of the t12 vertebrae, which is inconsistent with muscular innervation of the outer thigh - will give ivf as patient tells me he has not drank anything today and monitor symptoms 4. Asthma - pt not in exacerbation - continue singular, albuterol 5. HLD - continue atorvastatin 6. Depression/anxiety - continue effexor DVT Prophylaxis - lovenox]. Vital Signs Vital Signs Date Time Temp Pulse Resp B/P (MAP) Pulse Ox O2 Delivery O2 Flow Rate FiO2 01/28/21 01:49 97.5 94 18 127/88 (101) 98 Room Air Laboratory Data Labs 24H Laboratory Tests 2 01/27/21 21:15: Immature Granulocyte % (Auto) 0.4, Neutrophils (%) (Auto) 86.4H, Lymphocytes (%) (Auto) 4.6L, Monocytes (%) (Auto) 8.3H, Eosinophils (%) (Auto) 0.0, Basophils (%) (Auto) 0.3, Neutrophils # (Auto) 11.8H, Lymphocytes # (Auto) 0.6L, Monocytes # (Auto) 1.1H, Eosinophils # (Auto) 0.0, Basophils # (Auto) 0.0, Nucleated Red Blood Cells % (auto) 0.0, Erythrocyte Sedimentation Rate 1, Lactic Acid Level 1.1, Total Bilirubin 0.8, Direct Bilirubin 0.2, Aspartate Amino Transf (AST/SGOT) 23, Alanine Aminotransferase (ALT/SGPT) 34, Alkaline Phosphatase 60, Total Creatine Kinase 231, Creatine Kinase MB 6.2H, Creatine Kinase MB Relative Index 2.68, Troponin I < 0.02, C-Reactive Protein, Quantitative 0.76H, Total Protein 7.0, Albumin 3.7, Albumin/Globulin Ratio 1.1, Lipase 88 01/27/21 21:26: POC Glucose (Misc Panel) 107H, POC Sodium (Misc Panel) 138, POC Potassium (Misc Panel) 4.2, POC Chloride (Misc Panel) 101, POC Total CO2 (Misc Panel) 26.0, POC Blood Urea Nitrogen (Misc Panel 18, POC Ionized Calcium (Misc Panel) 4.6, POC Creatinine (Misc Panel) 1.1, POC Hematocrit (Misc Panel) 49.0 01/28/21 00:31: Coronavirus (COVID-19)(PCR) NEGATIVE, Influenza Type A (RT-PCR) NEGATIVE, In fluenza Type B (RT-PCR) NEGATIVE, Respiratory Syncytial Virus (PCR) NEGATIVE CBC/BMP Laboratory Tests 01/27/21 21:15 Microbiology Microbiology 01/27/21 Blood Culture, Received Pending 01/27/21 Blood Culture, Received Pending Home Medications Scheduled Amiodarone HCl (Amiodarone Hydrochloride) 200 Mg Tab, 200 MG PO DAILY Aspirin (Ecotrin) 81 Mg Tablet.dr, 81 MG PO DAILY Atorvastatin Calcium (Atorvastatin Calcium) 10 Mg Tablet, 10 MG PO DAILY Montelukast Sodium (Singulair) 10 Mg Tab, 10 MG PO DAILY Venlafaxine HCl (Effexor Xr) 150 Mg Cap, 150 MG PO DAILY Scheduled PRN Albuterol Sulfate (Proair Hfa) 8.5 Gm Hfa.aer.ad, 2 PUFF INH QID PRN for SHORTNESS OF BREATH Allergies Coded Allergies: No Known Allergies (Unverified , 12/20/20) A-FIB/CHADSVASC A-FIB History Current/History of A-Fib/PAF?: Yes Current PO Anticoag Therapy: No (per pt land appraiser) JARED HARRIS Jan 28, 2021 02:25
[2021-01-28] MEDS: LR 1,000 ML IV SCH ×2 (02:45→09:10)
[2021-01-28] MEDS: ACETAMINOPHEN TAB 650MG DOSE (2X325MG) PO PRN ×2 (04:51→09:13)
[2021-01-28 06:00] VITALS: BP 125/86
[2021-01-28 06:10] LABS: BASO % 0.3 % (0.0-1.0); EOS % 0.1 % (0.0-3.0); HEMATOCRIT 44.9 % (42.0-52.0); HEMOGLOBIN 15.2 g/dl (13.5-17.5); LYMPH # 1.2 10^3/uL (1.5-5.0); LYMPH % 12.4 % (24.0-44.0); MEAN CORPUSCULAR HEMOGLOBIN 30.3 pg (27.0-33.0); MEAN CORPUSCULAR HGB CONC 33.9 g/dl (32.0-36.5); MEAN CORPUSCULAR VOLUME 89.4 fl (80.0-96.0); MONO # 1.6 10^3/uL (0.0-0.8); MONO % 15.5 % (2.0-8.0); NEUTROPHILS # 7.2 10^3/uL (1.5-8.5); NEUTROPHILS % 71.4 % (36.0-66.0); PLATELET COUNT, AUTOMATED 200 10^3/uL (150-450); RED BLOOD COUNT 5.02 10^6/uL (4.30-6.10)
[2021-01-28 06:27] LABS: BLOOD UREA NITROGEN 13 MG/DL (7-18); CALCIUM LEVEL 8.4 MG/DL (8.8-10.2); CARBON DIOXIDE LEVEL 27 MEQ/L (21-32); CHLORIDE LEVEL 108 MEQ/L (98-107); CREATININE FOR GFR 0.86 MG/DL (0.70-1.30); GLOMERULAR FILTRATION RATE > 60.0 (>49); GLUCOSE, FASTING 99 MG/DL (70-100); MAGNESIUM LEVEL 1.6 MG/DL (1.8-2.4); SODIUM LEVEL 140 MEQ/L (136-145)
[2021-01-28 06:33] LABS: INR 1.06; PROTHROMBIN TIME 14.2 SECONDS (12.7-14.5)
[2021-01-28 06:34] LABS: PARTIAL THROMBOPLASTIN TIME 31.4 SECONDS (25.9-37.0)
[2021-01-28 07:57] LABS: CRYSTALS, BODY FLUID NONE SEEN (NONE SEEN); SOURCE, BODY FLUID LFT KNEE; SOURCE, BODY FLUID CRYSTALS LFT KNEE; SYNOVIAL FLUID COLOR RED (COLORLESS)
--- NOTE | 2021-01-28 08:33 | HPE ---
HISTORY AND PHYSICAL DATE OF ADMISSION: 01/28/2021 CHIEF COMPLAINT: Left knee swelling. HISTORY OF PRESENT ILLNESS: I was called by GIANFRANCO Hagan in the emergency department at [facility] this evening at approximately 9:55 p.m. Per the qualified medical practitioner, the patient was working on the zoë for the last three days, noticed some redness, sat down, some redness and warmth, pain with ambulating. He tried to take a needle and was picking at his knee apparently. There has not been any drainage, no fevers or other symptoms. PAST MEDICAL HISTORY: Atrial fibrillation, anticoagulation with aspirin 81 mg as well as hypertension, dyslipidemia and lumbar spine osteoarthritis. PHYSICAL EXAMINATION: Per GIANFRANCO Hagan, temperature 98.2. There is redness and warmth about the anterior aspect of the knee, no effusion, able to bend the knee 0 to 45 degrees, consistent with prepatellar bursitis, infected. Vital signs: Blood pressure 152/98, heart rate 115. LABORATORY DATA: White blood cell count 13.7, neutrophil percentage 86.4. ESR is 1, CRP 0.76, lactic 1.1. Blood cultures pending. IMAGING STUDIES: Radiograph of the knee demonstrates per the radiologist no fracture dislocation. Mild degenerative changes. Findings suggesting prepatellar bursitis. ASSESSMENT AND PLAN: This 70-year-old man appears to have left knee infected prepatellar bursitis. This is not a surgical emergency. GIANFRANCO Hagan would like to have the hospitalist service admit the patient for intravenous antibiotics. I think this is reasonable. I talked directly to Dr. Becerril, the hospitalist precision filer hand this evening at 10:05 p.m. I would like the patient to have intravenous MRSA prophylactic coverage starting immediately. They should be admitted over the night. They will be made NPO at midnight. I plan to assess the patient on an urgent within 24 hour basis to ensure that this is an infected prepatellar bursitis and plan to aspirate the prepatellar bursa area for gram stain, culture and cell count. GIANFRANCO Hagan understood the plan and had no further questions. MIGUE
[2021-01-28] MEDS ORDERED: PREVNAR 13 VACCINE SYRINGE IM ONE (09:00)
[2021-01-28] MEDS ORDERED: FLUBLOK(EGG FREE)(QUAD)INFLUENZA VACC 0.5ML SYRINGE 18YRS & OLDER IM ONE (09:00)
[2021-01-28] MEDS: VANCOMYCIN HCL 1,000 MG, VIAL MATE ADAPTER 1 EACH in NS 250 ML IV SCH ×2 (09:10→15:51)
[2021-01-28] MEDS: ENOXAPARIN 40MG/0.4ML SYRINGE (J1650 PER 10MG) SC SCH ×2 (09:11→21:00)
[2021-01-28] MEDS: ASPIRIN 81MG ENTERIC TABLET PO SCH (09:11)
[2021-01-28] MEDS: MONTELUKAST 10 MG TAB PO SCH (09:12)
[2021-01-28] MEDS: ATORVASTATIN 10 MG TAB PO SCH (09:12)
[2021-01-28] MEDS: VENLAFAXINE **XR** 75MG CAPSULE PO SCH (09:12)
[2021-01-28] MEDS: AMIODARONE 200 MG TAB (PACERONE) PO SCH (09:12)
--- NOTE | 2021-01-28 09:49 | IPN ---
PROGRESS NOTE DATE: 01/28/2021 CHIEF COMPLAINT: Left knee swelling. SUBJECTIVE: I spoke with Dr. Agrawal this morning at 8:30 a.m. on 01/28/2021 in regards to the need for an Infectious Disease consultation. I explained the history, physical exam as well as the knee aspiration that I had performed this morning. Dr. Agrawal agreed to assess the patient. The WBC fluid was 11,486, 89% PMNs, crystals are pending. Dr. Agrawal accepted the consultation. I appreciate her expert advice and opinion.
--- NOTE | 2021-01-28 09:49 | HPE ---
HISTORY AND PHYSICAL DATE OF ADMISSION: 01/28/2021 CHIEF COMPLAINT: Left knee swelling. HISTORY OF PRESENT ILLNESS: This 70-year-old man noticed a few days of redness and swelling mostly in the anterior aspect of his left knee. He was putting down a lot of laminate floors over the weekend. It swelled up a little bit but it actually started to get red just one day ago. At one point, there was something resembling pus on the anterior aspect of his knee. He took a small needle, tried to get that out, some pus and blood came out but the problem simply got worse. He describes his pain as a 4/10, when he bends it, it is up to a 6/10 but he is still able to ambulate and walk around on this. He describes no other constitutional symptoms; no fevers, chills, or drainage about the knee, nausea, vomiting or feeling unwell. PAST MEDICAL HISTORY: Atrial fibrillation, not on oral anticoagulation, hypertension, GERD. MEDICATIONS: 1. Amiodarone. 2. Aspirin. 3. Atorvastatin. 4. Montelukast. 5. Venlafaxine. ALLERGIES: No known drug allergies. SOCIAL HISTORY: Denies tobacco and alcohol. No illicit drug use. PAST SURGICAL HISTORY: Colonoscopy. PHYSICAL EXAMINATION: This is a well-appearing 70-year-old man in no acute distress. I saw him this morning at 7 a.m. on [address]. His vital signs this morning: Temperature 98.2, highest recorded temperature is 98.2, pulse rate 77, 125/76 blood pressure, 98% on room air. He appears well. He is alert and oriented x3. He does not appear to be uncomfortable. The left knee on inspection has a moderate to high degree of anterior swelling and redness and fluctuance there. No obvious effusion. His range of motion actively and passively is 0 to about 40 degrees. No pain with micro-motion. No tracking redness, is confined to the knee. He is able to dorsiflex, plantar flex, his foot with normal sensation and the limb is well-perfused. RADIOGRAPHS: Anterior prepatellar swelling. No fracture. LABORATORY DATA: White blood cell count 13.7 yesterday, down to 10 this morning, neutrophil percentage 86 and 71, ESR 1, only one value. CRP is 0.76. COVID is negative. Blood cultures are pending. ASSESSMENT AND PLAN: This 70-year-old man appears to have a septic bursitis of the left knee. He is started on antibiotics, Vancomycin per the Hospitalist Service. I recommend they consult Infectious Disease, Dr. Agrawal. I discussed the pros, cons, risks and benefits of performing of a knee bursa aspiration and performed that for him today. I sent off fluid analysis with gram stain, culture and sensitivity, crystals and cell count as well as asked the nurse to put a bandage, encouraged range of motion. He can be weightbearing as tolerated and diet as tolerated at this point as well. PROCEDURE NOTE: I discussed the pros and cons, risks and benefits of going ahead with the left knee bursa aspiration through an anterior approach with the patient. The risks of that include but not limited to infection, pain, stiffness, weakness, damage to surrounding structures, neurovascular injury and other risks, persistent drainage, failure to achieve a sample, failure to clear the infection. He wished to go ahead. Risks of nonsurgical management including having the infection worsen/spread, or be no better or worse. He would like to go ahead. I marked the left knee. I signed the consent form for the procedure. I did two person time-out with the nursing staff. I prepped the knee with Chlorhexidine, allowed this to thoroughly dry for three minutes. I did a pre-procedure time-out to confirm the site, patient and procedure. I used a 60 ml syringe with an 18 gauge spinal needle to aspirate through the anterior aspect of the knee, avoiding the previous area of his attempted aspiration. It appeared to be scabbed over and I thought it green to avoid this. I aspirated 60 ml of pink to red tinged fluid, sent these in two culture bottles, 30 ml each. I continued to milk the knee to express another about 10 ml of fluid. This was not thick purulent pus fluid, rather more like thin watery pinkish drainage. Afterwards, I was able to much more comfortably range the knee at 0 to 120 degrees with only minimal pain at the end range of motion and again no effusion or signs or intraarticular involvement. He felt much more comfortable and I asked the nurse to clean his knee as well as place a bandage on that as it may continue to drain out. I let the patient as well as the nursing staff know about that, to change the dressing as needed. No complications or excessive blood loss with the procedure. Samples have been sent. [facility]
--- NOTE | 2021-01-28 11:17 | IPNPDOC ---
Text Note Date of Service The patient was seen on 01/28/21. NOTE Mr. English is a 70 yo male with a PMH of Afib not on AC, HTN, HLD, GERD, and asthma presents with worsening erythema and edema of left knee. Pt states he was doing zoë in his home over the weekend and has been on his knees. Pt states there was a "pimple" on his knee that "drained pus when squeezed". Pt states there was "more pus draining" draining from the site and pt decided to use an non-sterile sewing needle to enlarge the opening as pt thought there might have been a splinter underneath. Pt states the swelling had gotten to a point where he decided to go to the ED. Pt states the pain dull non-radiating pain rated about a 2/10 located in the pre-patellar region in which the pain worsens when ambulating and improves with rest. Pt denies any associated symptoms of fever, chills, c/p, cough, SOB, abd pain, n/v/d/c, falls, or LE edema. Pt was given Tylenol and IVF in the ED. Imaging includes XR left knee showing no joint effusion, fracture, dislocation, but has prepatellar/infrapatellar soft tissue swelling suggestive of bursitis. Upon examination in the ED, pt had LLE twitching of muscles and an MRI of the lumbar was done which was unremarkable other than a compression fracture at T12. Pt admitted for LLE cellulitis with IV antibiotics support. S: Pt had no acute events overnight. Pt is awake and alert with a pleasant demea nor. Pt states he is doing much better today than yesterday. Pt states his pain is rated a 3/10 since aspiration procedure this morning. Pain has been about the same but swelling has decreased since yesterday. Pt states he is able to ambulate and bear weight on left leg. ROS: CONSTITUTIONAL: Denies headaches, fevers, chills. CARDIOPULMONARY: Denies c/p, SOB, dizziness GASTROINTESTINAL: Denies n/v/d/c. GENITOURINARY: Denies dysuria, polyuria. 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 Physical exam: GENERAL: Awake and alert, pleasant demeanor. HEENT: head atraumatic, normocephalic. Trachea midline. LUNGS: Lungs CTA b/l. No wheezing, rales. HEART: Irregular rhythm, normal rate. No murmurs. ABDOMEN: No abd tenderness, guarding, mass. EXTREMITIES: Edema, swelling, and erythema of left knee. Right knee not swollen or erythematous. SKIN/NAILS: Scab on anterior left knee. MUSCULOSKELETAL: Pain with knee flexion and palpitation on lateral knee above joint line. Pt denies pain upon medial and lateral knee joint movement. Pt able to actively flex knee about 60 degrees but with some pain. Imaging: XR Left Knee 01/27: Shows no fracture, dislocation, joint effusion. Prepatellar/infrapatellar soft tissue swelling suggestive of bursitis. MRI Lumbar spine 01/27: Shows compression fracture T12. Micro: BCx 01/27: pending Prepatellar bursa fluid aspiration of L knee: Red color with turbid appearance, no fluid crystals seen, WBC 05665, RBC 111, 89.1% polymorphonuclear cells Prepatellar bursa fluid Cx of L knee: pending MRSA 01/28: pending A/P: Mr. English is a 70 yo male with a PMH of Afib not on AC, HTN, HLD, GERD, and asthma presents with worsening erythema and edema of left knee and was admitted for LLE cellulitis. 1. L Knee erythema and edema, improving -Likely prepatellar bursitis with cellulitis. Other ddx include gout, RA, OA; less likely 2/2 septic arthritis, -Concern for joint space infection due to pt self I&D with non-sterilized needle -Pt continues to be afebrile. WBC trending down and WNL today at 10. -Ortho consulted f/u appreciated. Dr. Koroma following. Prepateller bursa aspiration collected and fluid Cx pending. ID consulted -Pain control with Tylenol PRN -BCx pending -Fluid Cx pending -Fluid aspiration shows inflammatory process likely due to bursitis. Less likely gout as fluid crystals absent. -MRSA PCR pending -Empiric IV Vanc started. Today is day 2 of Vanc. Will narrow abx pending cultures / ID consultation -ID consulted for concern over septic bursitis given increased polymorphonuclear cells 89.1% on fluid aspiration. 2. Afib not on AC, stable -Pt asymptomatic with HR <110. -Pt follows Telephone Advice Nurse Dr. Blayne Silva with [facility] in [place]. Last appointment was in August 2020 and next appointment in Feb. -Pt states per Telephone Advice Nurse, pt does not need AC at this time. -c/t home meds ASA and amiodarone 3. LLE fasciculations, resolved -Observed at time of admission. Pt denies any symptoms. -MRI shows no clinical correlation to fasciculations. 4. GERD, stable -Pt denies any symptoms -Monitor for symptoms as pt is taking NSAIDS for pain control. Can take up to 3.2 g Tylenol a day. -Consider PPI if pt develops symptoms 5. Asthma, stable -Pt denies any exacerbations. -c/t home meds Singular and Albuterol 6. HLD, stable -c/t home med Atorvastatin 7. Depression/anxiety, stable -Pt denies any symptoms. -c/t home med Effexor DVT Ppx: Pt on Lovenox Code: Full Disposition: D/C home once Ortho and ID clear VS,Fishbone, I+O VS, Fishbone, I+O Laboratory Tests 01/27/21 21:15 01/28/21 05:36 Vital Signs Date Time Temp Pulse Resp B/P (MAP) Pulse Ox O2 Delivery O2 Flow Rate FiO2 01/28/21 06:00 98.2 77 19 125/86 (99) 98 Room Air I&O- Last 24 Hours up to 6 AM 01/28/21 06:00 Intake Total 740 ml Balance 740 ml GME ATTESTATION GME ATTESTATION My faculty preceptor for this patient encounter was physically present during the encounter and was fully available. All aspects of the patient interview, examination, medical decision making process, and medical care plan development were reviewed and approved by the faculty preceptor. The faculty preceptor is aware and concurs with the plan as stated in the body of this note and will attest to such by his/her cosignature. ATTENDING NOTE I, Сергей Hernandez, have independently examined this patient and performed my own physical exam, as well as reviewed the documentation and edited where necessary with the resident. For medical students we have performed the physical exam together and discussed medical decision making and I have verified the history. I have discussed in detail with the resident / student the findings and plan of treatment as documented by the resident / student and edited their note. I agree with their findings and treatment plan and have edited their documentation. I will continue to follow the patient during this hospital stay. LAKEISHA OTOOLE OMS-4 Jan 28, 2021 11:17 СЕРГЕЙ HERNANDEZ MD Jan 28, 2021 14:32 MADDIE SNOW D.O. Jan 28, 2021 15:16
[2021-01-28] MEDS: MAG SULF 1GM/100ML (MAG RUN) 1 GM in IV 1 EA IV SCH (13:03)
[2021-01-28 14:00] VITALS: BP 130/87
--- NOTE | 2021-01-28 19:46 | CR.PDOC ---
General Date of Consultation: Jan 28, 2021 Referring Provider: SANDOR RAY MD Attending Physician: Eriberto Agrawal MD Consultation REASON FOR CONSULTATION/CHIEF COMPLAINT: Left knee septic bursitis HISTORY OF PRESENT ILLNESS: Mr. Rose is a 70-year-old male who presented to the ED yesterday, 01/27, after 2 days of progressive erythema, swelling, and pain in his left knee. He reports kneeling for the past 2 days laminating his floors. He first noticed a pimple and was able to express pus and blood from his left patella on Wednesday, 01/26. He noticed some initial surrounding erythema and edema of about 2 inches in diameter. He continued to work on his knees that afternoon and into the evening. Abscess worsened so he used a non-sterilized sewing needle to create a larger draining site because he initially thought that there was a wood splinter causing his pain. More pus and blood was drained from the site. On Wednesday, 01/27, he continued to have pain with noticeable erythema and edema but continued to work on his knees. That evening, the erythema and swelling had expanded to the entire anterior surface of his knee and his pain level was a 7- 8/10 that worsened with weightbearing and walking. The pain did not radiate. In the ED, he was given LR and IV vancomycin 1,000mg X2. This morning, 01/28, the patient was taken to the OR for an I&D with Dr. Koroma. 60 mL of pink to red-tinged fluid was aspirated and 2 cultures of 30 mL each were sent for culture. Per Dr. Koroma, the synovial fluid was not thick purulent pus fluid but more like thin watery pinkish drainage. The patient was seen this afternoon by ID. He reports feeling better after this morning's procedure and states his ROM has improved. He feels like the erythema and edema has gone down. He reports pain 2-3/10. He denies fever, chills, night sweats, TRAN, chest pain, palpitations, cough, hemoptysis, SOB, abdominal pain, N/V/D, hematochezia, dysuria, pyuria, hematuria, numbness or tingling in all 4 extremities. ALLERGIES: - NKDA - Denies any allergies to latex, food, or environmental. MEDICATIONS: - IV Vancomycin HCl 1,000mg Q8H - Venlafaxine HCl 150mg PO daily - Montelukast Sodium 10mg PO daily - Atorvastatin 10mg PO daily - Amiodarone HCl 200mg PO daily - Lovenox 40mg SC BID - Acetaminophen 650mg Q4H PRN for mild pain - IV Toradol 30mg Q6HP PRN for mod pain - IV Morphine 3mg Q4HP PRN for severe pain - Albuterol Inhaler 8.5Gm 2 puff INH QID PRN PAST MEDICAL HISTORY: - Arthritis - Hyperlipidemia - Prostate cancer 5 years ago treated with chemotherapy - Asymptomatic Afib diagnosed 5 years ago; completed 3 years of Eliquis at first diagnosis - Hiatal hernia - Fractured T12 vertebrae - Chronic low back pain - Asthma - GERD PAST SURGICAL HISTORY: - Colonoscopy 12/22/20 - EGD 12/22/20 - Tonsillectomy as a child FAMILY HISTORY: Father: ; h/o prostate cancer Mother: ; h/o heart disease/heart surgery Siblings: 3 brothers with h/o prostate cancer SOCIAL HISTORY: Marital status and/or living arrangements: Living with Employment: Retired, but continuously does work around the house Tobacco use: Nonsmoker; smoked 1ppd for 2 years about 40 years ago ETOH: Quit drinking 20 years ago; was an occasional drinker at the time Illicit drug use: Denies IV drug use: Denies Other relevant social factors: No pets, recent travel REVIEW OF SYSTEMS: CONSTITUTIONAL: Denies fever, chills, night sweats, extreme changes in weight, fatigue, generalized weakness. HEENT: Denies TRAN, recent changes in vision or hearing. CARDIOVASCULAR: Has known asymptomatic A rib. Denies chest pain, palpitations. RESPIRATORY: Denies SOB, cough, hemoptysis, pleuritic pain. GENITOURINARY: Denies suprapubic pain, Dysuria, pyuria, hematuria. MUSCULOSKELETAL: Erythema, edema, pain in his left knee. There is less ROM, but he is able to walk on the knee today. Denies radiation of pain. Denies numbness or tingling in the extremities. GASTROINTESTINAL: Denies abdominal pain, N/V/D, hematochezia, hematemesis. SKIN: Admits to multiple cuts and scars from doing housework. PHYSICAL EXAMINATION: VITAL SIGNS: Please see below. GENERAL APPEARANCE: Patient is a pleasant male who appears stated age in no acute distress. He is lying flat in the bed. HEENT: NC, AT. PERRLA. Sclera non-icteric. RESPIRATORY: Clear to auscultation bilaterally. No wheezes, rales, or rhonchi appreciated. CARDIOVASCULAR: Irregularly irregular heart sounds. S1, S2 appreciated. No obvious murmurs, rubs, or gallops appreciated. ABDOMEN: Minor cuts and lopez can be seen in the lower abdomen. Positive bowel sounds. Soft, non-tender to palpation. EXTREMITIES: Left knee is warm to touch. Erythema and edema can be seen over the entire anterior surface of his knee . There is a scab Soft, non-tender to palpation. Knee can be flexed to approx 100 deg before eliciting pain. Mild pain along the inferior patella during knee extension. Full flexion at the hip without pain. 2+ radial, dorsalis pedis and posterior tibialis pulses bilaterally. No pitting edema appreciated in the lower extremities bilaterally. NEUROLOGICAL: No obvious focal deficits appreciated. PSYCHIATRIC: Mood appears stable. LABORATORY DATA: FLUID LABS: - Fluid WBC 85314 (H) - Fluid RBC 111 - Fluid Mononuclear % 10.9 (H) - Fluid Polymorphonuclear % 89.1 (H) - Fluid Crystals NONE SEEN - Fluid Crystal Source LEFT KNEE - Synovial Source LEFT KNEE - Synovial Color RED - Synovial Appearance TURBID MRSA PCR NOT DETECTED IMAGIN01/27/21 Left Knee XRay: FINDINGS: "There is no evidence of acute fracture, dislocation, or intrinsic bone disea se.There is mild medial joint space narrowing and subchondral sclerosis. There is mild patellofemoral compartment narrowing and subchondral sclerosis. There is a large spur of the superior pole of the patella. There does not appear to be a significant joint effusion. There are scattered vascular calcifications. The prepatellar and infrapatellar soft tissues are swollen suggesting bursitis." IMPRESSION: "No fracture or dislocation. Mild degenerative changes. Findings suggesting prepatellar bursitis." 01/27/21 MRI Lumbar Spine Impression: "1. There is a moderate decrease in vertebral height/compression fracture of the T12 vertebral body. There is a mild progressive decrease in vertebral height, without significant acute marrow edema. 2. Degenerative changes are noted at multiple lumbar and lower thoracic levels, as described above. 3. No significant spinal canal stenosis at any lumbar level. 4. Neural foraminal narrowing diffusely within the lumbar spine. 5. Additional findings described above." MICROBIOLOGY: 01/27/2021 Blood Cultures pending 01/28/2021 Synovial Fluid: Final Gram Stain: Moderate WBCs. No organisms seen. Body Fluid Culture pending IMPRESSION: Mr. Rose is a 62-year-old male with a h/o arthritis who presents s/p I&D of left prepatellar septic bursitis. Although the patient has been afebrile and does not exhibit any clinical signs of systemic infection, the patient presented with bandemia and the knee is erythematous with edema and pain with movement. Ba ndemia can be seen in up to 1/3 of bursitis cases. Knee Xray supports findings suggesting prepatellar bursitis. Blood and fluid cultures are still pending, but lab analysis of the fluid obtained from aspiration showed high WBCs and predominant PMN cells. Even though the gram stain showed no organisms, Staph aureus is responsible for approx 80% of culture-proven septic bursitis, and various Strep species are the second most common causes. MRSA PCR was negative, but cannot completely r/o MRSA infection as nasal swab may not be the definitive. PLAN: - Continue with IV Vancomycin for Staph MSSA or MRSA and Strep coverage. Will descalate to PO antibiotic regimen when cultures result Cephalexin for 2 weeks. - Blood and fluid cultures pending. Vital Signs/I&O Vital Signs Date Time Temp Pulse Resp B/P (MAP) Pulse Ox O2 Delivery O2 Flow Rate FiO2 01/28/21 06:00 98.2 77 19 125/86 (99) 98 Room Air I&O- Last 24 Hours up to 6 AM 01/28/21 06:00 Intake Total 740 ml Balance 740 ml Laboratory Data Labs 24H Laboratory Tests 2 01/27/21 21:15: Immature Granulocyte % (Auto) 0.4, Neutrophils (%) (Auto) 86.4H, Lymphocytes (%) (Auto) 4.6L, Monocytes (%) (Auto) 8.3H, Eosinophils (%) (Auto) 0.0, Basophils (%) (Auto) 0.3, Neutrophils # (Auto) 11.8H, Lymphocytes # (Auto) 0.6L, Monocytes # (Auto) 1.1H, Eosinophils # (Auto) 0.0, Basophils # (Auto) 0.0, Nucleated Red Blood Cells % (auto) 0.0, Erythrocyte Sedimentation Rate 1, Lactic Acid Level 1.1, Total Bilirubin 0.8, Direct Bilirubin 0.2, Aspartate Amino Transf (AST/SGOT) 23, Alanine Aminotransferase (ALT/SGPT) 34, Alkaline Phosphatase 60, Total Creatine Kinase 231, Creatine Kinase MB 6.2H, Creatine Kinase MB Relative Index 2.68, Troponin I < 0.02, C-Reactive Protein, Quantitative 0.76H, Total Pro tein 7.0, Albumin 3.7, Albumin/Globulin Ratio 1.1, Lipase 88 01/27/21 21:26: POC Glucose (Misc Panel) 107H, POC Sodium (Misc Panel) 138, POC Potassium (Misc Panel) 4.2, POC Chloride (Misc Panel) 101, POC Total CO2 (Misc Panel) 26.0, POC Blood Urea Nitrogen (Misc Panel 18, POC Ionized Calcium (Misc Panel) 4.6, POC Creatinine (Misc Panel) 1.1, POC Hematocrit (Misc Panel) 49.0 01/28/21 00:31: Coronavirus (COVID-19)(PCR) NEGATIVE, Influenza Type A (RT-PCR) NEGATIVE, Influenza Type B (RT-PCR) NEGATIVE, Respiratory Syncytial Virus (PCR) NEGATIVE 01/28/21 05:36: Immature Granulocyte % (Auto) 0.3, Neutrophils (%) (Auto) 71.4H, Lymphocytes (%) (Auto) 12.4L, Monocytes (%) (Auto) 15.5H, Eosinophils (%) (Auto) 0.1, Basophils (%) (Auto) 0.3, Neutrophils # (Auto) 7.2, Lymphocytes # (Auto) 1.2L, Monocytes # (Auto) 1.6H, Eosinophils # (Auto) 0.0, Basophils # (Auto) 0.0, Nucleated Red Blood Cells % (auto) 0.0, Prothrombin Time 14.2H, Prothromb Time International Ratio 1.06, Activated Partial Thromboplast Time 31.4, Anion Gap 5L, Glomerular Filtration Rate > 60.0, Calcium Level 8.4L, Magnesium Level 1.6L 01/28/21 07:36: Body Fluid WBC (Auto) 49676Z, Body Fluid RBC (Auto) 111, Body Fluid Mononuclear Cells % Auto 10.9H, Fluid Polymorphonuclear Cell % Auto 89.1H, Body Fluid Crystals NONE SEEN, Body Fluid Crystal Source LFT KNEE, Synovial Fluid Source LFT KNEE, Synovial Fluid Color RED, Synovial Fluid Appearance TURBID 01/28/21 09:08: Methicillin-Resist S.aureus DNA PCR NOT DETECTED 01/28/21 15:24: Vancomycin Level Trough 9.4L CBC/BMP Laboratory Tests 01/27/21 21:15 01/28/21 05:36 Microbiology Microbiology 01/28/21 Gram Stain - Final, Resulted 01/28/21 Body Fluid Culture, Resulted Pending 01/27/21 Blood Culture, Received Pending 01/27/21 Blood Culture, Received Pending Allergies Coded Allergies: No Known Allergies (Unverified , 12/20/20) Home Medications Scheduled Amiodarone HCl (Amiodarone Hydrochloride) 200 Mg Tab, 200 MG PO DAILY, (Reported) Aspirin (Ecotrin) 81 Mg Tablet.dr, 81 MG PO DAILY, (Reported) Atorvastatin Calcium (Atorvastatin Calcium) 10 Mg Tablet, 10 MG PO DAILY, (Reported) Montelukast Sodium (Singulair) 10 Mg Tab, 10 MG PO DAILY, (Reported) Sulfamethoxazole/Trimethoprim (Bactrim Ds Tablet) 1 Each Tablet, 1 TAB PO BID for 14 Days, #28 Venlafaxine HCl (Effexor Xr) 150 Mg Cap, 150 MG PO DAILY, (Reported) Scheduled PRN Albuterol Sulfate (Proair Hfa) 8.5 Gm Hfa.aer.ad, 2 PUFF INH QID PRN for SHORTNESS OF BREATH, (Reported) GME ATTESTATION GME ATTESTATION My faculty preceptor for this patient encounter was physically present during the encounter and was fully available. All aspects of the patient interview, examination, medical decision making process, and medical care plan development were reviewed and approved by the faculty preceptor. The faculty preceptor is aware and concurs with the plan as stated in the body of this note and will attest to such by his/her cosignature. CAMILO SAGASTUME S-3 Jan 28, 2021 19:44 Eriberto Agrawal MD Jan 30, 2021 21:12
[2021-01-28 22:00] VITALS: BP 121/72
[2021-01-29] MEDS: VANCOMYCIN HCL 1,000 MG, VIAL MATE ADAPTER 1 EACH in NS 250 ML IV SCH ×2 (00:12→08:19)
[2021-01-29] MEDS ORDERED: MORPHINE 2 MG/ML 1ML VIAL (J2270) IV ONE (03:00)
[2021-01-29] MEDS ORDERED: ASPIRIN 81 MG CHEW TABLET PO ONE (03:00)
--- NOTE | 2021-01-29 03:41 | IPNPDOC ---
Text Note Date of Service The patient was seen on 01/29/21. NOTE Significant event. Patient complained of chest pain. Asa, stat EKG and troponin ordered. Patient denies history of chest pain. Does have significant history of paroxysmal A. fib. Patient describes sharp chest pain left-sided both to moderate around 3 AM after having his blood pressure taken. EKG shows A. fib rate controlled heart rate 90. Patient is irregularly irregular during auscultation. He is tolerating room air with no tachypnea and lungs clear. He does have noticeable swollen left knee. He now reports he is chest pain-free. He does report pain elsewhere in relation to his knee however no chest pain; he reports that chest pain "lasted about a minute" in total. At time of sharp chest pain patient does endorse numbness tingling to left arm. Trop pending. Will repeat EKG in 6 hours for interval check; his admission ekg did show aflutter with av block. Patient has been on therapeutic Lovenox dosing will inpt. He reports that in his past he has been on Eliquis for his A. fib but his doctor took him off over a year ago. Should troponin elevated will opt for telemetry monitoring and would seek cardiology feedback. WCTM. VS,Fishbone, I+O VS, Fishbone, I+O Laboratory Tests 01/28/21 05:36 Vital Signs Date Time Temp Pulse Resp B/P (MAP) Pulse Ox O2 Delivery O2 Flow Rate FiO2 01/28/21 22:00 97.8 96 18 121/72 (88) 95 Room Air I&O- Last 24 Hours up to 6 AM 01/29/21 06:00 Intake Total 900 ml Balance 900 ml MALCOLM PATRICIA NP Jan 29, 2021 03:21
[2021-01-29 03:54] LABS: MAGNESIUM LEVEL 1.6 MG/DL (1.8-2.4); TROPONIN I < 0.02 NG/ML (< 0.10)
[2021-01-29 07:10] VITALS: BP 141/99
[2021-01-29 07:24] LABS: BASO % 0.4 % (0.0-1.0); EOS % 0.4 % (0.0-3.0); HEMATOCRIT 45.4 % (42.0-52.0); HEMOGLOBIN 14.9 g/dl (13.5-17.5); LYMPH # 1.4 10^3/uL (1.5-5.0); LYMPH % 15.8 % (24.0-44.0); MEAN CORPUSCULAR HEMOGLOBIN 30.3 pg (27.0-33.0); MEAN CORPUSCULAR HGB CONC 32.8 g/dl (32.0-36.5); MEAN CORPUSCULAR VOLUME 92.3 fl (80.0-96.0); MONO # 1.2 10^3/uL (0.0-0.8); MONO % 12.7 % (2.0-8.0); NEUTROPHILS # 6.3 10^3/uL (1.5-8.5); NEUTROPHILS % 70.1 % (36.0-66.0); PLATELET COUNT, AUTOMATED 191 10^3/uL (150-450); RED BLOOD COUNT 4.92 10^6/uL (4.30-6.10)
--- NOTE | 2021-01-29 07:26 | ECGEPIP ---
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
--- NOTE | 2021-01-29 07:49 | IPN ---
PROGRESS NOTE DATE: 01/29/2021 CHIEF COMPLAINT: Post-admission day 2, left knee swelling, septic bursitis. HISTORY OF PRESENT ILLNESS: This 70-year-old man presented with anterior left knee swelling. I performed an aspiration at the bedside yesterday morning at 7 a.m. He is doing well. A little bit of discomfort when he mobilizing up to the washroom but he feels like his knee is a lot better today. Subjectively feels well. PHYSICAL EXAMINATION/OBJECTIVE: He is a well-appearing, 70-year-old man. Vital Signs: Temperature 98.3. Blood pressure is stable. Pulse rate 81. He appears well. He has been comfortable. Swelling has reaccumulated mostly on the anterior aspect of the knee but much less red and warm today. His range of motion is 0-130 degrees; very mild tenderness at the end of range of motion. He has strong pedal pulses; normal sensation to the foot; able to dorsiflex and plantar flex the foot. No obvious effusion but on the anterior aspect there is quite a bit, again, of this fluid reaccumulation. Chemistries pending this morning. Microbiology: Knee aspirate: Results show moderate WBCs and no organism seen. Full culture results in two days. ASSESSMENT AND PLAN: This 70-year-old man is doing well with antibiotic therapy and needle aspiration for septic bursitis. The bursal fluid accumulation has reaccumulated but, however, overall his signs of infection are diminishing and his range of motion improving. I recommend ice, range of motion as tolerated, and weightbearing as tolerated. Continue on the antibiotics per infectious disease recommendation. I reviewed their notes; agree with the plan. And, follow up final cultures and following along inflammatory markers. Please let me know if there are any further questions or concerns regarding this patient.
[2021-01-29 07:52] LABS: BLOOD UREA NITROGEN 13 MG/DL (7-18); CALCIUM LEVEL 8.1 MG/DL (8.8-10.2); CARBON DIOXIDE LEVEL 29 MEQ/L (21-32); CHLORIDE LEVEL 108 MEQ/L (98-107); GLOMERULAR FILTRATION RATE > 60.0 (>49); GLUCOSE, FASTING 94 MG/DL (70-100); POTASSIUM SERUM 4.1 MEQ/L (3.5-5.1); SODIUM LEVEL 141 MEQ/L (136-145)
[2021-01-29] MEDS: ENOXAPARIN 40MG/0.4ML SYRINGE (J1650 PER 10MG) SC SCH (08:19)
[2021-01-29] MEDS: VENLAFAXINE **XR** 75MG CAPSULE PO SCH (08:20)
[2021-01-29] MEDS: AMIODARONE 200 MG TAB (PACERONE) PO SCH (08:20)
[2021-01-29] MEDS: ATORVASTATIN 10 MG TAB PO SCH (08:20)
[2021-01-29] MEDS: MONTELUKAST 10 MG TAB PO SCH (08:20)
[2021-01-29] MEDS: ASPIRIN 81MG ENTERIC TABLET PO SCH ×2 (08:20→08:24)
[2021-01-29] MEDS ORDERED: MAGNESIUM OXIDE 400MG TAB (MAG-OX) PO SCH (09:00)
[2021-01-29] MEDS ORDERED: BACT800T5 PO (10:45)
--- NOTE | 2021-01-29 11:50 | DS.PDOC ---
Discharge Summary General Date of Admission Jan 28, 2021 at 00:11 Date of Discharge Jan 29, 2021 Attending Physician: СЕРГЕЙ HERNANDEZ MD Discharge Summary PROCEDURES PERFORMED DURING STAY: Prepatellar fluid aspiration on 01/[address] Lizett Koroma ADMITTING DIAGNOSES: 1. LLE cellulitis. 2. A fib not on anticoagulation 3. GERD 4. Asthma 5. HLD 6. Depression/anxiety DISCHARGE DIAGNOSES: 1. Septic bursitis. 2. A fib not on anticoagulation 3. GERD 4. Asthma 5. HLD 6. Depression/anxiety COMPLICATIONS/CHIEF COMPLAINT: Left Knee Cellulitis. HISTORY OF PRESENT ILLNESS: Mr. English is a 70 yo male with a PMH of Afib not on AC, HTN, HLD, GERD, and asthma presents to the ED 01/27 with worsening erythema and edema of left knee over two days. Patient states he was doing zoë in his home over the weekend and has been on his knees. Patient states he first noticed a "pimple" on his knee on 01/26 that "drained pus when squeezed". Patient continued to work on his knees later that afternoon. Patient noticed more erythema, edema, and pain decided to use an non-sterile sewing needle to enlarge the opening as patient thought there might have been a splinter underneath. Patient states there was "more pus draining" from the site and states the swelling had gotten to a point where he decided to go to the ED. Patient states the pain is a dull non- radiating pain rated a 7-8/10 located in the pre-patellar region in which the pain worsens when ambulating and improves with rest. Patient denies any associated symptoms of fever, chills, c/p, cough, SOB, abd pain, n/v/d/c, falls, or LE edema. Patient was given Tylenol, vancomycin 1gx2, and IVF in the ED. Imaging of XR left knee showing no joint effusion, fracture, dislocation, but has prepatellar/infrapatellar soft tissue swelling suggestive of bursitis. Upon examination in the ED, patient had LLE twitching of muscles and an MRI of the lumbar was done which was unremarkable other than a compression fracture at T12. Patient admitted for LLE cellulitis with IV antibiotics support. HOSPITAL COURSE: Upon admission to the hospital, Ortho was consulted and performed an I&D with prepatellar fluid aspiration. Fluid aspiration drained 60cc of red-tinged fluid which was negative for crystals and gram stain showed no organisms. ID was consulted and IV vancomycin was continued. Fluid cultures were positive for Staph aureus. MRSA nares was negative. Blood cultures showed no growth after 24 hours. Patient received a total of 3 days of vancomycin. Patient continued to be afebrile with no signs of systemic infection. Left knee ROM improved with Tylenol and antibiotics and is able to flex knee from <40 degrees at the beginn ing of hospitalization to now about 0-150 degrees with very mild tenderness at the end of ROM. Pedal pulses are intact with normal sensation and movement of the foot. Leukocytosis normalized, erythema and edema improved over the course of the hospital stay. After discussion with infectious disease antibiotics were adjusted to Bactrim for completion of 14 days as an outpatient. Patient has a history of Afib, and per patient, is not on any home medications since his Manager Urology deemed it was not warranted at this time. Patient was placed on therapeutic Lovenox over this course of hospitalization. Hospitalization course was complicated with an episode of intermittent, nonradiating, moderate chest pain after positioning himself several times while in bed. Chest pains had resolved; negative troponin and EKG showed Afib with HR <110 with no acute findings of ischemia. Patient was found to have hypomagnesia which was repleted. Patient is medically optimized and no longer requires hospital level of care. DISCHARGE MEDICATIONS: Please see below. ALLERGIES: Please see below. PHYSICAL EXAMINATION ON DISCHARGE: VITAL SIGNS: Please see below. GENERAL: Pt is a pleasant male alert and awake laying flat comfortably in bed in NAD. HEENT: Head NC and AT. Eyes PERRLA. NECK: Supple, nontender, no tracheal deviation. CARDIOVASCULAR EXAMINATION: Irregularly irregular heart rate. S1 and S2 appreciated. No murmurs. RESPIRATORY EXAMINATION: Lungs CTA b/l. No wheeze or rales appreciated. ABDOMINAL EXAMINATION: Minor scabs on abdomen. Positive bowel sounds. Abdomen soft and non-tender EXTREMITIES: : Moves all extremities. ROM of L knee flexing to about 150 degrees before eliciting pain. Mild pain to palpation along anterolateral knee above the joint line. Distal extremity pulses 2+ b/l. SKIN: L knee warm to touch with mild erythema. Wound from where patient used a needle to self I&D healing with no gross discharge appreciated. NEUROLOGICAL EXAMINATION: Sensations intact b/l in LE. No obvious focal deficits appreciated. PSYCHIATRIC EXAMINATION: Mood appears stable. LABORATORY DATA: Please see below. IMAGIN. Left knee XR -No fracture or dislocation. Mild degenerative changes. Findings suggesting prepatellar bursitis. 2. MR Lumbar Spine Without and With Contrast: -There is a moderate decrease in vertebral height/compression fracture of the T12 vertebral body. There is a mild progressive decrease in vertebral height, without significant acute marrow edema. -Degenerative changes are noted at multiple lumbar and lower thoracic levels -No significant spinal canal stenosis at any lumbar level. -Neural foraminal narrowing diffusely within the lumbar spine. PROGNOSIS: Good ACTIVITY: As tolerated. DIET: Regular DISCHARGE PLAN: Follow-up with primary care provider, infectious disease and orthopedic surgery within the next 7 days Remain compliant with treatment plan and medications Return to the ER if you experience any problems DISPOSITION: Home with services DISCHARGE CONDITION: [Stable]. TIME SPENT ON DISCHARGE: 20 minutes. Vital Signs/I&Os Vital Signs Date Time Temp Pulse Resp B/P (MAP) Pulse Ox O2 Delivery O2 Flow Rate FiO2 01/29/21 07:10 98.3 81 18 141/99 (113) 98 Room Air I&O- Last 24 Hours up to 6 AM 01/29/21 06:00 Intake Total 900 ml Balance 900 ml Laboratory Data Labs 24H Laboratory Tests 2 01/28/21 15:24: Vancomycin Level Trough 9.4L 01/29/21 03:12: Lactic Acid Level 1.0, Magnesium Level 1.6L, Troponin I < 0.02 01/29/21 07:08: Immature Granulocyte % (Auto) 0.6, Neutrophils (%) (Auto) 70.1H, Lymphocytes (%) (Auto) 15.8L, Monocytes (%) (Auto) 12.7H, Eosinophils (%) (Auto) 0.4, Basophils (%) (Auto) 0.4, Neutrophils # (Auto) 6.3, Lymphocytes # (Auto) 1.4L, Monocytes # (Auto) 1.2H, Eosinophils # (Auto) 0.0, Basophils # (Auto) 0.0, Nucleated Red Blood Cells % (auto) 0.0, Anion Gap 4L, Glomerular Filtration Rate > 60.0, Calcium Level 8.1L CBC/BMP Laboratory Tests 01/29/21 07:08 Microbiology Microbiology 10/19/21 Gram Stain - Final, Resulted 01/28/21 Body Fluid Culture - Preliminary, Resulted Staphylococcus Aureus 01/27/21 Blood Culture - Preliminary, Resulted No growth after 24 hours . All specim... 01/27/21 Blood Culture - Preliminary, Resulted No growth after 24 hours . All specim... Discharge Medications Scheduled Amiodarone HCl (Amiodarone Hydrochloride) 200 Mg Tab, 200 MG PO DAILY, (Reported) Aspirin (Ecotrin) 81 Mg Tablet.dr, 81 MG PO DAILY, (Reported) Atorvastatin Calcium (Atorvastatin Calcium) 10 Mg Tablet, 10 MG PO DAILY, (Reported) Montelukast Sodium (Singulair) 10 Mg Tab, 10 MG PO DAILY, (Reported) Sulfamethoxazole/Trimethoprim (Bactrim Ds Tablet) 1 Each Tablet, 1 TAB PO BID Venlafaxine HCl (Effexor Xr) 150 Mg Cap, 150 MG PO DAILY, (Reported) Scheduled PRN Albuterol Sulfate (Proair Hfa) 8.5 Gm Hfa.aer.ad, 2 PUFF INH QID PRN for SHORTNESS OF BREATH, (Reported) Allergies Coded Allergies: No Known Allergies (Unverified , 12/20/20) GME ATTESTATION GME ATTESTATION My faculty preceptor for this patient encounter was physically present during the encounter and was fully available. All aspects of the patient interview, examination, medical decision making process, and medical care plan development were reviewed and approved by the faculty preceptor. The faculty preceptor is aware and concurs with the plan as stated in the body of this note and will attest to such by his/her cosignature. ATTENDING NOTE I, Сергей Hernandez, have independently examined this patient and performed my own physical exam, as well as reviewed the documentation and edited where necessary with the resident. For medical students we have performed the physical exam together and discussed medical decision making and I have verified the history. I have discussed in detail with the resident / student the findings and plan of treatment as documented by the resident / student and edited their note. I agree with their findings and treatment plan and have edited their documentation. I will continue to follow the patient during this hospital stay. Time spent on discharge 20 minutes LAKEISHA OTOOLE OMS-4 Jan 29, 2021 11:50 СЕРГЕЙ HERNANDEZ MD Jan 29, 2021 12:19 MADDIE SNOW D.O. Jan 29, 2021 14:50
[2021-01-29] MEDS: ACETAMINOPHEN TAB 650MG DOSE (2X325MG) PO PRN (12:17)
--- NOTE | 2021-01-29 13:24 | ECGEPIP ---
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
--- NOTE | 2021-01-30 14:01 | ECGEPIP ---
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
--- OUTSIDE RECORDS SUMMARY | 2021-02-24 14:49 | CCD | Continuity of Care Document ---
Author Author Antony CHARLTON MD Organization Unknown Address [address] , [facility] [address] [place] [address] Phone [phone] Care Team Providers Care Biometrics Head Name Role Phone Girish Rothman D.O. AUTM [phone] Blayne Silva M.D.-[place] AUTM [phone] AUTM Unavailable Problems Description No Active Problems Social History Type Date Description Comments Sex Unknown ETOH Use Heavy Drinker Until 1995 ETOH Use Consumes 3 beers per day Tobacco Use Start: Unknown No Recreational Drug Use Denies Drug Use Allergies and adverse reactions Description No Known Drug Allergies Medications Active Medications SIG Qnty Indications Ordering Provide r Date Effexor XR 150mg Caps ER 24HR Daily Unknown Ventolin HFA 108(90Base) mcg/ac Ae rosol 2 puffs qid prn with spacer 1units Unknown Aspir-[address] Mary lau Unknown Montelukast Sodium 10mg Tablets 1 by mouth every day Unknown Atorvastatin Calcium 10mg Tablets 1 by mouth every day Unknown Amiodarone HCL 200mg Tablets 1 by mouth every day Unknown Sulfamethoxazole/Trimethoprim DS 800-160mg Tablets Take One Tablet By Mouth Twice A Day Unkn own History Medications Miralax 17GM/Scoop Powder use as instructed by doctor for bowel prep 510gm Z12.11 Jamin Pires MD 10/01/2020 - 02/11/2021 Milk Of Magnesia 1200mg/15ML Suspe nsion take 45 milliliters by mouth as directed on colonoscopy prep sheet. Z12.11 Jamin Pires MD 10/01/2020 - 02/11/2021 Immunizations Description No Information Available Vital Signs Date Vital Result Comment 02/11/2021 10:22am Body Temperature 96.9 F 10/01/2020 1:27pm BP Systolic 152 mmHg BP Diastolic 86 mmHg Height 72 inches 6'0" Weight 212.00 lb BMI (Body Mass Index) 28.7 kg/m2 [place] Body Weight 178 lb Weight 96.163 kg BSA (Body Surface Area) 2.18 m2 Results Test Acquired Date Facility Test Result H/L Range Note Laboratory test finding 02/11/[address] [address] [phone] High Sensitivity CRP 1.32 mg/L 1 CBC W/Auto Diff 02/11/[address] [address] [phone] White Blood Count 8.88 10^3/uL Normal 4.00-10.50 Red Blood Count 5.42 10^6/uL Normal 4.30-5.80 Hemoglobin 16.4 g/dL Normal 13.0-17.5 Hematocrit 48.9 % Normal 41.0-53.0 MCV 90.2 FL Normal 80.0-100.0 MCH 30.3 pg Normal 27.0-34.0 MCHC 33.5 g/dL Normal 32-36 RDW 13.3 % Normal 11.5-14.5 Platelet Count 420 10^3/uL High 130-400 MPV 9.9 FL Normal 8.7-13.2 Gran % (Auto) 73.5 % Normal 42.0-75.0 Lymph % (Auto) 16.8 % Low 20.0-51.0 Miner % (Auto) 7.5 % Normal 2.0-15.0 Eos % (Auto) 0.8 % Normal 0.0-11.0 Baso % (Auto) 0.8 % Normal 0.0-2.0 Ig % (Auto) 0.6 % 1.00-5.00 Ig # (Auto) 0.1 10^3/uL <0.5 Gran # (Auto) 6.53 10^3/uL High 1.50-6.50 Lymph # (Auto) 1.5 k/uL Normal 1.0-5.0 Miner # (Auto) 0.67 k/uL Normal 0.20-1.50 Eos # (Auto) 0.07 10^3/uL Normal 0.00-1.10 Baso # (Auto) 0.07 10^3/uL Normal 0.00-0.20 Laboratory test finding 02/11/[address] [address] [phone] Sed Rate 7 mm/hr Normal 0-20 Cardiac Marker Panel 01/27/2021 [facility] enter Main Lab [address] [place] [address] [phone] CPK Creatine Phosphokinase 231 U/L Normal 39-30 8 CK-MB Value Mass 6.2 NG/ML High <3.6 MB/CK Relative Index 2.68 Normal < Or =4 2 Troponin I < 0.02 NG/ML Normal < 0.10 3 Liver Profile 01/27/2021 [facility] nter Main Lab [address] [place] [address] [phone] Ast/Sgot 23 U/L Normal 7-37 Alt/SGPT 34 U/L Normal 12-78 Alkaline Phosphatase 60 U/L Normal 45-117 Bilirubin,Total 0.8 mg/dL Normal 0.2-1.0 Bilirubin,Direct 0.2 mg/dL Normal 0.0-0.2 Total Protein 7.0 GM/DL Normal 6.4-8.2 Albumin 3.7 GM/DL Normal 3.2-5.2 Albumin/Globulin Ratio 1.1 Normal Laboratory test finding 01/27/2021 [facility] Main Lab [address] [place] [address] [phone] Lipase 88 U/L Normal 73-393 C Reactive Protein Quantitativ 0.76 mg/dL High 0.00-0.30 Laboratory test finding 01/03/2021 [facility] Main Lab [address] [place] [address] [phone] Pathology Request For Service (SEE NOTE) 4 1 CRP Cardiovascular Risk Fact ors as Recommended by the [place] [employer] and the CDC: Low Risk: <1.0 mg/L Average Risk: 1.0-3.0 mg/L High Risk: >3.0 mg/L Results greater than 10 mg/L should be repeated and the patient examined for sources of infection or inflammation. 2 DIAGNOSIS CRITERIA MMB ng/ml Relative Index (RI) NON-AMI < or = 5 N/A REAL ZONE > 5 < or = 4 AMI > 5 > 4 3 Troponin I Reference Interva l for Siemens [place] LOCI: 99th Percentile= 0.00-0.045 ng/ml Risk Stratification: <= 0.10 ng/ml Decreased Risk for Adverse Clinical Events. 0.10-1.50 ng/ml Increased Risk for Adv erse Clinical Events. Evaluation of additional criterion and/or repeat testing in 2-6 hours is suggested to rule out myocardial damage. >= 1.50 ng/ml Indicative of Myocardial Injury. 4 FINAL DIAGNOSIS A - Stomach, biopsy for [...] polyp/ tubulovillous and tubular adenoma. 01/06/2021 - 130 CLINICAL DIAGNOSIS Nausea, vomiting, screening gastritis 01/03/2021 - 1452 GROSS DIAGNOSIS A - Received in formalin [...] fragments. All in one. - 01/03/2021 - 1452 Signed Franky Cruz MD 01/06/2021 1308 Procedures Date Code Description Status 02/11/2021 50390 Office/Outpatient Established Lo w MDM 20-29 Min Completed 01/03/2021 31468 Colonoscopy W/ Poly Completed 01/03/2021 94256 Endoscopy Upper GI Biopsy Comple daryl 10/01/2020 25033 Office/Outpatient [facility] 30 -44 Minutes Completed Medical Devices Description No Information Available Encounters Type Date Location Provider Dx Diagnosis Office Visit 02/11/2021 10:30a [facility] Orthopedics Octavio Charlton MD M70.42 Prepatellar bursitis, left knee L03.116 Cellulitis of left lower ferrari b Office Visit 10/01/2020 1:15p [facility] Gastroenterology Pra ctice LATRICIA Pedersen Z12.11 Encounter for screening for malignant neoplasm of colon R11.2 Nausea with vomiting, unspec ified Assessments Date Code Description Provider 02/11/2021 M70.42 Prepatellar bursitis, left knee Octavio Charlton MD 02/11/2021 L03.116 Cellulitis of left lower limb Sc vega Charlton MD 01/03/2021 Z12.11 Encounter for screening for lio [...] screening for lio gnant neoplasm of colon LATRICIA Pedersen 10/01/2020 R11.2 Nausea with vomiting, unspecifie d LATRICIA Pedersen Plan of Treatment Future Appointment(s):* 03/11/2021 11:15 am - Octavio Charlton MD at [facility] Orthopedics 02/11/2021 - Octavio Charlton MD* M70.42 Prepatellar bursitis, left knee* New Labs:* CBC With Differential, Ordered: 02/11/21 * High Sensitivity C-Reactive Protein, Ordered: 02/11/21 * Erythrocyte Sedimentation Rate, Ordered: 02/11/21 * Referral:* Eriberto Agrawal M.D., Infectious Diseases * L03.116 Cellulitis of left lower limb* New Labs:* CBC With Differential, Ordered: 02/11/21 * High Sensitivity C-Reactive Protein, Ordered: 02/11/21 * Erythrocyte Sedimentation Rate, Ordered: 02/11/21 * Referral:* Eriberto Agrawal M.D., Infectious Diseases Functional Status Description No Information Available Mental Status Description No Information Available Referrals Refer to Dr Reason for Referral Status Appt Date Eriberto Agrawal M.D. left knee cellulitis, mutual patient, MAURICE referral Sent 02/13/2021 [facility] [address] [place] [address] [phone] Jamin Pires M.D. COLO SCREENING Scheduled 10/01/2020 [facility], Gastroenterology [address] [facility], [address] [place] [address] [phone]
--- OUTSIDE RECORDS SUMMARY | 2021-02-24 14:50 | CCD ---
Clinical Summary - [facility] Created on: 02/12/2021 Antony Rose External Reference #: [id number] : 1950 Sex: Male [facility] Organization [facility] Address [address] [place] [address] Phone Care Team Providers Care Electronics Maintenance Technician Name Role Phone Girish Rothman DO PP [phone] Girish Rothman DO Unavailable [phone] Jake AMAYA, Carolyn Unavailable [phone] Reason for Referral No Reason for Referral Recorded Reason for Visit and Chief Complaint COVID Moderna Imm 3 Problems Includes: Problems addressed during this encounter and other active Problems All Visits Onset Date - Time Resolved Date - Time Provider Co ndition Status Abnormal Liver Function Test 08/06/2020 - 12:00AM Carmen Rothman DO Active Note: Unchanged Nicotine Dependence in Remission 05/26/2018 - 12:00AM Girish Rothman DO Active Prostate Gland Neoplasm Malignant Adenocarcinoma 01/31/2018 - 12 :00AM [place] Nurse Active Other intervertebral disc degeneration, lumbar region 02/15/2017 - 12:00AM Linnea MEDEL Active Note: 01/26/17- Christopher DURANrescribed [place] [facility] [address] . f/u 3-4 weeks with [...] Active Note: Followed by cardiology , see [facility] consult dated 01/03/16 Cardiomyopathy 09/30/2015 - 12:00AM Girish mtz DO Active Note: Per [facility] consult dated 09/27/15, ejection fraction 40-45% on [...] Treatment Future Appointments Date Time Location Provider Chronic Disease Follow-up 08/06/2021 11:00AM [facility] Linnea Davis NP Assessments Includes: Assessments from this encounterNo Assessments Recorded Instructions Includes: Instructions from this encounterNo Instructions Recorded Medical Equipment - Implanted Devices Includes: Current DevicesNo Medical Equipment Recorded Medications Includes: Medications discussed during this encounter and other current Medicati ons Current Medications (continue as prescribed) Adult Blood Pressure Cuff Lg Kit 02/05/2021 Provide r: Linnea Davis MIX CHEMIST Diagnosis: Essential (primary) hypertension as directed- monitor BP daily Adult Aspirin Regimen 81 MG Oral Tablet Delayed Release 08/11 Provider: Diagnosis: Amiodarone HCl 200 MG Oral Tablet 08/06/2020 Provid er: Carolyn Joseph MD Diagnosis: Montelukast Sodium 10 MG Oral Tablet 06/13/2020 - 06/08/2021 Provider: Girish Rothman DO Diagnosis: Other seasonal aller gic rhinitis as directed take 1 tablet once a day. Effexor XR 150 MG Oral Capsule Extended Release 24 Hour 07/2020 - 06/08/2021 Provider: Girish Rothman DO Diagnosis: Bipolar disorder, un specified as directed take 1 capsule once daily. Atorvastatin Calcium 10 MG Oral Tablet 06/13/2020 - 06/08/19 Provider: Girish Rothman DO Diagnosis: Hyperlipidemia, unsp ecified as directed take 1 tablet once daily. Medications Administered Includes: Administered Medications from this encounterNo Administered Medications Recorded Vital Signs Includes: Vital Signs from this encounterNo Vital Signs Recorded For Specified Dates Results Includes: Results discussed during this encounterNo Results Recorded For Specified Dates History of Present Illness Includes: History of Present Illness from this encounter Antony Rose is a 70 year old male. Presents today to receive booster dose of Moderna coronavirus vaccine Immunization fact sheet has been provided, reviewed and all questions answered. Consent form completed, signed and reviewed. Patient will be monitored for 15 - 30 minutes after administration of the vaccine for any side effects Certificate of Immunization is updated along with instructions to register in [email or web address] program for CDC follow up of administration of the vaccine. Social History No Social History Recorded - Smoking Status Unknown Procedures and Surgical History Includes: Procedures from this encounter Procedures Code Diagnosis Performing Provider Service Location Service Date Moderna COVID-19 Vaccine 60698 Encounter for immunization Vanessa Allen RN 02/12/2021 Moderna COVID19 Vaccine Administration Third Dose 0013A Encounter for immunization Rosanna Allen RN 02/12/2021 Medical History Includes: Medical History addressed during [...] Recorded Immunizations Includes: Immunizations addressed during this encounter Vaccine Dose # Date Site Reaction(s) Status Source Moderna COVID-19 3 02/12/2021 Right Deltoid Complete (Administered) [facility] Note: Adminstered by Rosanna Allen RN Allergies Includes: Active AllergiesNo Known Allergies Encounters Encounter Provider Location Date Check-In Time Check-Out Time D iagnosis COVID Moderna Imm [address] [facility] 02/12/2021 1:3 3PM 11:59PM Insurance Includes: Active Insurance Policies Plan Name Member ID Group # Subscriber Relationship Effective Da kp 1 - [employer] [id number] Antony Rose Self 1 - Unknown Advance Directives Includes: Current Advance Directives Directive Pat Aware Third Alliance Party Effective Date Reviewed Status RHIO Yes 03/11/2012 Current and Ve rified Note: 03/10/12 Ebola Screening Performed Yes 12/23/2018 Current and Verified Note: Within the last month, have you traveled outside of the [place]? - NO packet given Pt Bill of Rights, Priv Prac, Ad Dir Yes 02/05/2021 Current and Verified Note: Pt declined AD packet Health Concerns Includes: Health Concerns addressed during this encounterNo Active Health Concerns Recorded Goals Includes: Goals addressed during this encounterNo Active Goals Recorded Interventions Includes: Interventions addressed during this encounterNo Interventions Recorded Evaluations & Outcomes Includes: Evaluations & Outcomes addressed during this encounterNo Outcomes Recorded
--- OUTSIDE RECORDS SUMMARY | 2021-02-24 14:50 | CCD | Continuity of Care Document ---
Author Author Antony CHARLTON MD Organization Unknown Address [address] , [facility] [address] [place] [address] Phone [phone] Care Team Providers Care Knot Tying Operator Name Role Phone Girish Rothman D.O. AUTM [phone] Blayne Silva M.D.-Clive AUTM AUTM Unavailable Problems Description No Active Problems [...] lb BMI (Body Mass Index) 28.7 kg/m2 [place] Body Weight 178 lb Weight 96.163 kg BSA (Body Surface Area) 2.18 m2 Results Test Acquired Date Facility Test Result H/L Range Note Cardiac Marker Panel 01/27/2021 [facility] enter Main Lab [address] [place] [address] [phone] CPK Creatine Phosphokinase 231 U/L Normal 39-30 8 CK-MB Value Mass 6.2 NG/ML High <3.6 MB/CK Relative Index 2.68 Normal < Or =4 1 Troponin I < 0.02 NG/ML Normal < 0.10 2 Liver Profile 01/27/2021 [facility] nter Main Lab [address] [place] [address] [phone] Ast/Sgot 23 U/L Normal 7-37 Alt/SGPT 34 U/L Normal 12-78 Alkaline Phosphatase 60 U/L Normal 45-117 Bilirubin,Total 0.8 mg/dL Normal 0.2-1.0 Bilirubin,Direct 0.2 mg/dL Normal 0.0-0.2 Total Protein 7.0 GM/DL Normal 6.4-8.2 Albumin 3.7 GM/DL Normal 3.2-5.2 Albumin/Globulin Ratio 1.1 Normal Laboratory test finding 01/27/2021 [facility] Main Lab [address] [place] [address] [phone] Lipase 88 U/L Normal 73-393 C Reactive Protein Quantitativ 0.76 mg/dL High 0.00-0.30 Laboratory test finding 01/03/2021 [facility] Main Lab [address] [place] [address] [phone] Pathology Request For Service (SEE NOTE) 3 1 DIAGNOSIS CRITERIA MMB ng/ml Relative Index (RI) NON-AMI < or = 5 N/A REAL ZONE > 5 < or = 4 AMI > 5 > 4 2 Troponin I Reference Interva l for [employer] [place] LOCI: 99th Percentile= 0.00-0.045 ng/ml Risk Stratification: <= 0.10 ng/ml Decreased Risk for Adverse Clinical Events. 0.10-1.50 ng/ml Increased Risk for Adv erse Clinical Events. Evaluation of additional criterion and/or repeat testing in 2-6 hours is suggested to rule out myocardial damage. >= 1.50 ng/ml Indicative of Myocardial Injury. 3 FINAL DIAGNOSIS A - Stomach, biopsy for [...] 1308 Procedures Date Code Description Status 02/11/2021 06522 Office/Outpatient Established Mo d MDM 30-39 Min Completed 01/03/2021 27921 Colonoscopy W/ Poly Completed 01/03/2021 57667 Endoscopy Upper GI Biopsy Comple daryl 10/01/2020 36667 Office/Outpatient New Low MDM 30 -44 Minutes Completed Medical Devices Description No Information Available Encounters Type Date Location Provider Dx Diagnosis Office Visit 02/11/2021 10:30a [facility] Orthopedics Octavio Charlton MD M70.42 Prepatellar bursitis, left knee L03.116 Cellulitis of left lower ferrari b Office Visit 10/01/2020 1:15p [facility] Gastroenterology [facility] ctice Kristan Rose LATRICIA Maguire Z12.11 Encounter [...] for lio gnant neoplasm of colon Kristan Rose LATRICIA Maguire 10/01/2020 R11.2 Nausea with vomiting, unspecifie d Kristan Rose LATRICIA Maguire Plan of Treatment 02/11/2021 - Octavio Charlton MD* M70.42 Prepatellar [...] Agrawal M.D. left knee cellulitis, mutual patient, [place] [address] [phone] Jamin Pires M.D. COLO SCREENING Scheduled 10/01/2020 [facility], Gastroenterology [address] [address] [phone]
--- OUTSIDE RECORDS SUMMARY | 2021-02-24 14:50 | CCD ---
[facility] [place] Created on: 02/05/2021 Antony Rose External Reference #: [id number] : 1950 Sex: Male Author Author [facility] Organization [facility] Address [address] [place] [address] Phone Care Team Providers Care Core Cutter And Reamer Name Role Phone Girish Rothman DO PP [phone] Girish Rothman DO Unavailable [phone] Jake AMAYA, Carolyn Unavailable [phone] Reason for Referral Date Encounter Description Provider Reason for Referral 02/05/21 Linnea Davis PRENATAL GENETIC COUNSELOR Request Consul tation By Specialist Reason for Visit and Chief Complaint visit for: AHR. doing well without complaint, visit for: check-up - The Chief C joão is: pt present for AHR, pt reports he was seen at [facility] ER for left knee cellulitis and is currently on antibiotic. records have been requested [facility] Problems Includes: Problems addressed during this encounter and other active Problems Current Visit Onset Date - Time Resolved Date - Time Provider C ondition Status Prostate Gland Neoplasm Malignant Adenocarcinoma 01/31/2018 - 12 :00AM [facility] Active Fracture of T11-t12 Vertebral Body Wedge Compression 02/05/2017 - 12:00AM Girish Rothman DO Active Note: Per 01/23/17 L-Spine M RI Hypertension (Systemic) 09/11/2016 - 12:00AM Girish Rothman DO Active Paroxysmal Atrial Fibrillation 01/07/2016 - 12:00AM Darrell Rothman DO Active Note: Followed by cardiology , see [facility] consult dated 01/03/16 Asthma Intermittent 09/01/2010 - 12:00AM Girish capps DO Active Note: see asthma action plan Reported Family History of Ischemic Heart Disease 08/02/2007 - 12:0 0AM Active Note: MOTHER AT 62 Past Visits Onset Date - Time Resolved Date - Time Provider Co ndition Status Abnormal Liver Function Test 08/06/2020 - 12:00AM Carmen Rothman DO Active Note: Unchanged Nicotine Dependence in Remission 05/26/2018 - 12:00AM Girish Rothman DO Active Other intervertebral disc degeneration, lumbar region 02/15/2017 - 12:00AM Linnea MEDEL Active Note: 01/26/17- Christopher Thornton MDPrescribed [place] TLSO 464 . f/u 3-4 weeks with x ray Impaired Fasting Glucose 09/11/2016 - 12:00AM Girish Rothman DO Active Microalbuminuria 09/11/2016 - 12:00AM Girish delaney DO Active Cardiomyopathy 09/30/2015 - 12:00AM Girish mtz DO Active Note: Per [facility] consult dated 09/27/15, ejection fraction 40-45% on [...] and we will continue to follow that." Hemorrhoids Internal 09/03/2009 - 12:00AM Girish vance DO Active Note: SMALL ON 06/28/2009 COL ONOSCOPY- DR SHARMA. Allergic Rhinitis - Pollen 03/05/2009 - 12:00AM Ronald Rothman DO Active Note: COUGH RESPONDED TO ANT I HIS AND SINGULAIR IN FALL 2008. Vitamin D Deficiency 03/05/2009 - 12:00AM Girish cazareslo DO Active Benign Skin Neoplasm Subcutaneous Lipoma [...] IN 2002. Hyperlipidemia 08/02/2007 - 12:00AM Girish Mo o DO Active Note: Well-Controlled - TRIG S HAVE BEEN 490 IN PAST. Obesity 08/02/2007 - 12:00AM Active Note: Unchanged Plan of Treatment Pending Tests Order Diagnosis Results Due Ordering Provi jamila Follow-up Appt - Follow-up Chronic Revisit in 6 months Enc ounter for general adult medical exam w abnormal findings 02/05/21 Linnea Judge In House Meds - Immunizations Please give immunizations toda y per Immun. tab Encounter for general adult medical exam w abnormal findings 02/05/21 Linnea Davis PRENATAL GENETIC COUNSELOR Lab CBC w/ Auto Diff 08/04/21 Linnea preston PRENATAL GENETIC COUNSELOR Lab COMPREHENSIVE METABOLIC PANEL 08/04/21 Linnea Davis NP Lab GLYCOSYLATED HGBA1C 08/04/21 Linnea riley PRENATAL GENETIC COUNSELOR Lab LIPID PANEL 08/04/21 Linnea Judge Lab MICROALBUMIN RANDOM 08/04/21 Linnea riley PRENATAL GENETIC COUNSELOR Lab TSH 08/04/21 Linnea Judge Future Appointments Date Time Location Provider YOLANDA Herrera [facility] 3 02/12/2021 1:40PM [facility] Yolanda Villeda RN Chronic Disease Follow-up 08/06/2021 11:00AM [facility] Linnea Davis NP Future Tests Order Diagnosis Results Due Ordering Provid er Care Management Care Mgmt: Hypertension Essential (primary) hype rtension 02/05/21 Linnea Davis PRENATAL GENETIC COUNSELOR Visit Summary - Standard Visit Visit Summary Standard Visi t Encounter for general adult medical exam w abnormal findings 02/05/21 Linnea Davis PRENATAL GENETIC COUNSELOR - Return to the clinic if condition worsens or new symptoms arise Assessments Includes: Assessments from this encounter - Colonoscopy fiberoptic was performed 06/28/2009 Repeat due 06/2019 - Routine history and physical see updat ed problem list above for impression and plan of any problems addressed today. Vaccine records reviewed. Seasonal flu vaccine advised. Cancer screening discussed. Prostate cancer - per urologist . Colonoscopy 01/03/21 reviewed. Repeat advised in 3 years - Paroxysmal atrial fibrillation - Hypertension - Intermittent asthma - Wedge compression fracture of T11-T12 vertebral body - Septic prepatellar bursitis - Left kne e - Adenocarcinoma of the prostate gland Instructions Includes: Instructions from this encounter Education and Decision Aids were provide d during visit for: Discussed nutritional needs Patient education about regular dental c are 02/05/2021 Parent education about immunizations Re viewed and Patient/Parent declined copy of VIS Discussed concerns about exercise Patient appeared to understand therapeut ic regimen Self-management goals initiated / update d for patient 02/05/2021 The PATIENT'S GOAL is to weigh 200 pound s - The patient's current weight is 203 po unds Medical Equipment - Implanted Devices Includes: Current DevicesNo Medical Equipment Recorded Medications Includes: Medications discussed during this encounter and other current Medicati ons New / Renewed during this visit Linnea riley PRENATAL GENETIC COUNSELOR on 02/05/2021 Adult Blood Pressure Cuff Lg Kit Provide r: Linnea Davis PRENATAL GENETIC COUNSELOR 30 day supply: 1 kit, 0 refills Diagnosis: Angelica al (primary) hypertension as directed- monitor BP daily Pharmacy: [id number] - [address] [facility], [phone] - Current Medications (continue as prescribed) Adult Aspirin [...] 10 MG Oral Tablet 06/13/2020 - 06/08/19 22 Provider: Girish Rothman DO Diagnosis: Hyperlipidemia, unsp ecified as directed take 1 tablet once daily. Medications Administered Includes: Administered Medications from this encounterNo Administered Medications Recorded Vital Signs Includes: Vital Signs from this encounter Vital Name 02/05/2021 02:40P 02/05/2021 02:15P Blood Pressure Sitting L 168/92 180/90 BP Cuff Size Regular Pulse Rate-Sitting (bpm) 88 Pulse Rhythm Regular Respiration Rate (breaths/min) 20 Temp-Temporal 97.2 Height (in) 72 Weight (lb) 203 Body Mass Index (kg/m2) 27.5 Body Surface Area (m2) 2.14 Pain Level 0 Oxygen Saturation (%) 98 Flow Rate (l/min) (None (Room Air)) FiO2 (%) 21 Results Includes: Results discussed during this encounterNo Results Recorded For Specified Dates History of Present Illness Includes: History of Present Illness from this encounter Antony Rose is a 70 year old male. - Allergy list reviewed - Medication reconciliation performed - - No request for consultation by special ist - A previous emergency room visit [facility] Hdkhgctpt99/19/21 reviewed. Presented to [facility] for left knee pain and swelling. Diagnosed with septic bursitis, aspiration of joint performed. Hospital progress note 01/29/21 reviewed. Fluid accumulation has recurred on the anterior aspect of his knee, overall he is doing well. Awaiting final culture results. He did develop sharp chest pain around 3AM which lasted for about 1 minute with left arm numbness and tnigling. Troponin and EKG ordered. X-ray knee reviewed. No evidence of fracture or dislocation. Mild medial joint space narrowing. Mild patellofemoral compartment narrowing. Does not appear to be a significant joint effusion.Findings suggestive of prepatellar bursitis. MRI lumbar spine reviewed. Moderate decrease in vertebral height/compression fracture of the T12 vertebral body. No significant spinal canal stenosis. Labs reviewed Antony 70yo M presents today for AHR. Pt was an inpatient at [facility] 01/28/21 and diagnosed with a left knee septic joint bursitis. Dr. Mast performed an aspirate and removed 60mL of fluid from left knee for pathology. He is currently on Bactrim at this time for treatment of septic bursitis. Pt states that he will be seeing ortho next week. He reports his knee pain has improved since his admission, although does still report significant swelling to the area. Pt does have a hx of a-fib and is managed by cardiology. Pt denies TRAN, light headedness, cp, palpitations, SOB, cough, f/c, n/v/d, falls and gait disturbances. Antony's BP is high, he is quite nervous about being in the office and about his continued knee infection. Repeat BP slightly lower. He reports in the hospital his BP was in the 120's. He will monitor his BP at home and we will initiate care management. If readings continue to be elevated (>140/90) will need to initiate an anti-hypertensive. When prompted about urology follow up (hx of prostate cancer treated with radiation seeds) he states that he does not want to go back anymore. "I feel like I've lived a long time and the doctor told me the cancer was all gone." Patient educated on the nature of cancer and how it is important to follow up regularly with specialists but he adamantly stated that he did not want to see urology any longer. Offered if he changed his mind we could provide a referral to a Urology office closer to home to alleviate any burden of transportation. On physical exam Left knee joint notable edema present, is warm to touch erythematous. Educated pt the importance of finishing full course of prescribed antibiotic. Educated pt the importance of continuing to monitor site for infection. Educated pt the apply heat to area intermittently to increase blood flow to joint and promote healing. Educated pt the importance of calling office or go to the ER if symptoms become worse. Educated pt the importance of nutrition and hydration to promote healing. Educated pt the importance of f/u appts. Patient rx'd home bp cuff to monitor pressure. Nurse will be calling him to follow up on how his blood pressure has been in roughly 2 weeks. Patient will have covid booster next week. Patient will attend ortho appointment next week. Patient will follow up in 6 months. Total time of encounter 35 min No active illness within the past week (temp > 100.0 F), no allergies (vaccines, eggs, gelatin), and no recent immunization (live virus: MMR, Varicella, Shingles, Rotovirus, Influenza in past 28 days). No diagnosis of adverse effect of vaccines. No diagnosis of neurologic disorder (Debra G[place], Uncontrolled Seizure disorder). No diagnosis of immunologic disorder (cancer, leukemia, AIDS, other). Review of immunization history 02/05/2021. No gamma globulin (in the past year). No steroids (in the past three months). No cancer chemotherapeutic agents (any anti-cancer treatment in the past one month). No blood transfusion (or blood products in the past one month). Need for vaccination TDaP VIS Sheet date 11/15/20 given. Need for vaccination Influenza VIS Sheet date 11/15/20 given. Social History Description Last Updated Educational level 02/05/2021 (3) I do some light physical activity every week 02/05 control method not specified 02/05/2021 Exercise frequency 02/05/2021 No caffeine use 02/05/2021 No domestic violence 02/05/2021 No physical disability 02/05/2021 Normal activities of daily living 02/05/2021 Not using drugs 02/05/2021 Sexually active 02/05/2021 Alcohol use (male) less than 5 drinks per occasion / 14 per week 02/05/2021 Drug use Denies Drug Use 02/05/2021 No secondhand cigarette smoke exposure 02/05/2021 Smoking status 02/05/2021 : Former smoker 02/05/2021 Procedures and Surgical History Includes: Procedures from this encounter Procedures Code Diagnosis Performing Provider Service Location Service Date Influenza virus vaccine, split virus, High Dose Encounter for immunization Linnea Davis NP 02/05/2021 Tdap, Tetanus, Diphthe[place] [address] Encounter for immunization Linnea Davis PRENATAL GENETIC COUNSELOR 02/05/2021 continue current medication unless otherwise stated parent education about immunizations Re viewed and Patient/Parent declined copy of VIS Transition in care medication list update records management 02/03/2021 - Chart Prep Performed drug and/or alcohol abuse structured scr eening and brief intervention 02/05/2021 : Prescreening Completed - No Further Screening Indicated Summary provided electronically in CCDA format & reasonable certainty of receipt Medical History Includes: Medical History addressed during this encounter Description Last Updated An abnormal PSA HX OF ELEVATED PSA- DAD AND 2 SIBLINGS WITH PROSTATE CA ~BX HAVE SOME SHOWN SOME ATYPIA NO CANCER 02/05/2021 History of hyperlipidemia 02/05/2021 Past medical history -Please see Problem List for Act luis armando Chronic Problems 02/05/2021 Family History Includes: Family History addressed during this encounter Description Last Updated Assessment of family history of ischemic heart disease 02/05/2021 Family history of cancer FATHER AND 2 BROTHERS PROSTA TE 02/05/2021 Family history of heart disease MOTHER 62 02/05/2021 Review of Systems Includes: Review of Systems from this encounter Systemic: Not feeling poorly (malaise). No recent weight change. Head: No headache. Neck: No neck pain. Eyes: No vision problems. Otolaryngeal: No hearing loss, no earache, no nasal discharge, and no sore throat. Cardiovascular: No chest pain or discomfort, no palpitations, and the heart rate was not fast. Pulmonary: No dyspnea and no cough. Gastrointestinal: Normal appetite and no heartburn. No nausea, no vomiting, no abdominal pain, and no melena. No diarrhea. Genitourinary: No genitourinary symptoms and no dysuria, no frequency, no hesitancy. Endocrine: No polydipsia and no excessive sweating. Musculoskeletal: No muscle aches. Pain localized to one or more joints and joint stiffness localized to one or more joints. Neurological: No dizziness, no fainting, no motor disturbances, and no sensory disturbances. Psychological: No anxiety, no depression, and no sleep disturbances. Skin: Skin symptoms Noted erythema and swelling of left knee. No skin lesions and no rash. Mental Status Includes: Mental Status from this encounter Description Cognitive functioning was normal Oriented to time, place, and person Thought processes were not impaired No anxiety The thought content revealed no impairme nt Functional Status Includes: Functional Status from this encounterNo Functional Status Recorded Physical Exam Includes: Physical Exam from this encounter Skin: -the skin showed erythema at the left knee accompanied by swelling. Erythema do es not appear to be creeping proximally and patient states that both the swellin g and redness has improved by roughly 50% -no skin lesions -the skin general appearance was normal Ears, Nose, Throat: -external auditory meatus normal -no nasal discharge seen -the oropharynx was normal Neck: -the neck demonstrated no decrease in suppleness -the thyroid showed no abnormalities -no cervical mass was seen Lymph Nodes: -the supraclavicular lymph nodes were not enlarged Lungs: -normal breath sounds/voice sounds -no wheezing was heard -no rhonchi were heard -no rales/crackles were heard Cardiovascular System: -no murmurs were heard -no pitting edema -no nonpitting edema -heart rate and rhythm abnormal -no bradycardia present -no tachycardia present -heart rhythm irregular Afib Abdomen: -the bowel sounds were normal -abdominal non-tender -no mass was palpated in the abdomen -the liver was not enlarged -the spleen was not enlarged Back: -no costovertebral angle tenderness -Back: normal Psychiatric Exam: -the grooming was normal -the affect was normal -the mood was euthymic -thought processes were not impaired -the thought content revealed no impairment Neurological System: -cognitive functioning was normal -the cranial nerves were normal -gait and stance were normal -oriented to time, place, and person General Status: -well-appearing -in no acute distress -well developed -well nourished -no feelings of hopelessness -no loss of interest in activities Musculoskeletal System: -overall findings were normal -left knee tenderness was observed on ambulation -left knee was examined Vital Signs: -current vital signs reviewed Noted hypertensive reading Immunizations Includes: Immunizations addressed during this encounter Vaccine Dose # Date Site Reaction(s) Status Source Boostrix 2 02/05/2021 Right Deltoid Complete (Administered ) [facility] Influenza, high-dose (over 65) 3 02/05/2021 Upper Left Arm Complete (Administered) [facility] Moderna COVID-19 1 06/27/2020 Complete (Reported) Patient Moderna COVID-19 2 08/08/2020 Complete (Reported) Patient Allergies Includes: Active AllergiesNo Known Allergies Encounters Encounter Provider Location Date Check-In Time Check-Out Time D iagnosis AHR Linnea Davis PRENATAL GENETIC COUNSELOR [facility] 02/05/2021 1:52PM 3:13PM Colonoscopy (Fiberoptic), Prostate Gland Neoplasm Malignant Adenocarcinoma, Routine History and Physical, Paroxysmal Atrial Fibrillation, Asthma Intermittent, Fracture of T11-t12 Vertebral Body Wedge Compression, Bursitis Prepatellar Septic, Hypertension (Systemic) Insurance Includes: Active Insurance Policies Plan Name Member ID Group # Subscriber Relationship Effective Da kp 1 - [employer] [id number] Antony Rose Self 1 - Unknown Advance [...] AD packet Health Concerns Includes: Health Concerns for Goals addressed during this encounterNo Active Health Concerns Recorded Goals Includes: Active Goals addressed during this encounterNo Active Goals Recorded Interventions Includes: Interventions for Goals addressed during this encounterNo Interventions Recorded Evaluations & Outcomes Includes: Evaluations & Outcomes for Goals addressed during this encounterNo Outcomes Recorded
== END 2021-01-29 13:05 | disposition home or self-care (01) ==
LOC: M ED 16:11 → M ED INP 16:12 → UNDOADMOB 01-28 00:11 → M ED INP 01-28 00:11 → M MS5PR 01-28 02:00 → M ED INP 01-28 02:00 → UNDODISOB 01-29 13:05 → M MS5PR 02-24 14:43 → M ED INP 02-24 14:43
PROVIDERS: ADMIT Internal Medicine; ATTEND Internal Medicine
DX: M70.42 Prepatellar bursitis, left knee (principal); I48.91 Unspecified atrial fibrillation; K21.9 Gastro-esophageal reflux disease without esophagitis; J45.909 Unspecified asthma, uncomplicated; E78.5 Hyperlipidemia, unspecified; I10 Essential (primary) hypertension; F41.9 Anxiety disorder, unspecified; F32.9 Major depressive disorder, single episode, unspecified; Z79.82 Long term (current) use of aspirin; Z79.899 Other long term (current) drug therapy
CPT/HCPCS: 36415; 72158; 73564; 80047; 80048; 80076; 80202; 82550; 82553; 83605; 83690; 83735; 84484; 85025; 85610; 85652; 85730; 86140; 87040; 87070; 87077; 87186; 87205; 87631; 87641; 89051; 89060; 93005; 96365; 96366; 96372; 96375; 99284; A9576; G0378; J1650; J1885; J2270; J3370; J3475

== ENCOUNTER → 2022-10-02 | Outpatient (CLI) | payer MEDICARE ==
[~2022-10-02] MED LIST changes: +ATOR1TAB19 PO; +BACT800T5 PO; -LISI-898 PO; +LISI5TAB11 PO; +MONT-5 PO; +PROAAER10 INH; -SING10TA32 PO
== END ==
LOC: M OUTALCOH 07:26
PROVIDERS: ATTEND Psychiatry & Neurology Psychiatry
DX: Z03.89 Encounter for observation for other suspected diseases and conditions ruled out (principal)